=== PATIENT | male | born 1970 | race Two or more races ===

== ENCOUNTER → 2025-03-26 | Outpatient (CLI) | payer MEDICAID | END | disposition home or self-care (01) | LOC: Rad HDHVI 08:06 | PROVIDERS: ATTEND Internal Medicine Cardiovascular Disease | DX: I07.1 Rheumatic tricuspid insufficiency (principal); R06.02 Shortness of breath | CPT/HCPCS: 93306 ==

== ENCOUNTER 2025-04-06 08:01 | Outpatient (CLI) | payer MEDICAID ==
[~2025-04-06] VITALS: Ht 170.2 cm; Wt 111.1 kg
[2025-04-06] MEDS ORDERED: ADENOSINE 93 MG in GIVE UN-DILUTED 0 ML IV ONE (08:30)
[2025-04-06] MEDS ORDERED: ADENOSINE 90 MG/30 ML INJ IV ONE (08:34)
== END 2025-04-06 17:00 | disposition home or self-care (01) ==
LOC: Rad HDHVI 08:01
PROVIDERS: ATTEND Internal Medicine Cardiovascular Disease
DX: R06.00 Dyspnea, unspecified (principal); I10 Essential (primary) hypertension; R06.02 Shortness of breath; R09.02 Hypoxemia; J45.909 Unspecified asthma, uncomplicated; E78.00 Pure hypercholesterolemia, unspecified
CPT/HCPCS: 78452; 93017; A9500; J0153

== ENCOUNTER 2025-04-27 10:22 | Inpatient (IN) | payer MEDICAID ==
[2025-04-27] VITALS (26 sets, daily range): BP systolic 106–146; BP diastolic 58–73; PULSE 89–109; RESP 14–30; TEMP 97.6–99.6; O2SAT 94–100
[~2025-04-27] VITALS: Ht 170.2 cm; Wt 113.1 kg
--- NOTE | 2025-04-27 10:40 | ED.PDOC ---
SOB-HPI HPI Comments 55y M who presents to the ED via EMS for chief complaint of shortness of breath. Pt states his shortness of breath started yesterday with noted exacerbation of his shortness of breath with exertion. Pt states today AM, pt was walking in grocery store and noted he started be short of breath. Pt states he went to his car and took his asthma inhaler and states he still was short of breath and called EMS. EMS arrived on scene and noted had increased work of breathing with noted 02 sat of 97% on room air and pt was given 1 breathing treatment with noted albuterol and Atrovent treatment. Pt now in the ED, states he has been having associated vomiting, chills and diarrhea with noted bilateral lower extremity swelling. Pt [facility] and states he is having testing done for heart disease. Pt otherwise denies any other symptoms. The patient is also now stating that he has had a lower GI bleed. Chief Complaint: shortness of breath Time Seen by MD: 10:39 Reviewed notes: Nurses Notes, Aircraft Cleaning Supervisor Notes, Medications, Allergies Information Source: Patient, Emergency Med Personnel Mode of Arrival: EMS Brought in by: EMS Severity: Moderate Timing: Hours Duration: Since onset Context: With Light Exertion, With Heavy Exertion PE Risk Factors: None History of: Asthma Prehospital treatment: Treatment (ermias segal, ) Modifying Factors: Exertion, Inhaler Associated Signs and Symptoms: Other (chills, vomting) Past Medical History PAST MEDICAL HISTORY: Asthma Past Medical History (Other): psoriasis Surgical History: Denies all surgeries Family History Family History: Family hx of DM Social History Smoker: Non-Smoker Alcohol: Occasionally Drugs: Denies Drug Use Lives In: Home Constitutional: reports: chills; denies: diaphoresis, fatigue, fever, malaise, sweats, weakness, others EENTM: denies: blurred vision, double vision, ear bleeding, ear discharge, ear drainage, ear pain, ear ringing, eye pain, eye redness, hearing loss, mouth pain, mouth swelling, nasal discharge, nose bleeding, nose congestion, nose pain, photophobia, tearing, throat pain, throat swelling, voice changes, others Respiratory: reports: shortness of breath; denies: cough, hemoptysis, orthopnea, SOB at rest, SOB with excertion, stridor, wheezing, others Cardiovascular: denies: chest pain, dizzy spells, diaphoresis, Dyspnea on exertion, edema, irregular heart beat, left arm pain, lightheadedness, palpitations, PND, syncope, others Gastrointestinal: reports: diarrhea, vomiting; denies: abdomen distended, abdominal pain, blood streaked bowels, constipated, dysphagia, difficulty swallowing, hematemesis, melena, nausea, poor appetite, poor fluid intake, rectal bleeding, rectal pain, others Genitourinary: denies: burning, dysuria, flank pain, frequency, hematuria, incontinence, penile discharge, penile sore, pain, testicle pain, testicle swelling, urgency, others Neurological: denies: dizziness, fainting, headache, left sided numbness, left sided weakness, numbness, paresthesia, pre-existing deficit, right sided numbness, right sided weakness, seizure, speech problems, tingling, tremors, weakness, others Musculoskeletal: denies: back pain, gout, joint pain, joint swelling, muscle pain, muscle stiffness, neck pain, others Integumetry: denies: bruises, change in color, change in hair/nails, dryness, laceration, lesions, lumps, rash, wounds, others Allergic/Immunocompromised: denies: Difficulty Healing, Frequent Infections, Hi ves, Itching, others Hematologic/Lymphatic: denies: anemia, blood clots, easy bleeding, easy bruising, swollen glands, others Endocrine: denies: excessive hunger, excessive sweating, excessive thirst, excessive urination, flushing, intolerance to cold, intolerance to heat, unexplained weight gain, unexplained weight loss, others Psychiatric: denies: anxiety, bipolar disorder, depression, hopeless, panic disorder, schizophrenia, sleepless, suicidal, others All Other Systems: Reviewed and Negative Physical Exam General Appearance: Obese, Severe Distress HEENT: Pale Conjuntivae (L), Pale Conjuntivae (R), Pharynx Normal, TMs Normal Neck: Full Range of Motion, Non-Tender, Normal, Normal Inspection Respiratory: Chest Non-Tender, Lungs Clear, No Accessory Muscle Use, No Respiratory Distress, Normal Breath Sounds Cardiovascular: No Edema, No JVD, No Murmur, No Gallop, Normal Peripheral Pulses, Regular Rate/Rhythm Breast Exam: Deferred Gastrointestinal: No Organomegaly, Non Tender, No Pulsatile Mass, Normal Bowel Sounds, Soft Genitalia: Deferred Pelvic: Deferred Rectal: Deferred Extremities: No calf tenderness, Normal capillary refill, Normal inspection, Normal range of motion, Non-tender, No pedal edema Musculoskeletal : Apperance: Normal Neurologic: Alert, quality assurance group leader II-XII nml as Tested, Motor Weakness, Normal Affect, Normal Mood, No Sensory Deficits Cerebellar Function: Normal Reflexes: Normal Skin: Dry, Pallor, Warm Lymphatic: No Adenopathy EKG EKG : Pulse Rate (adult): 113 [place]: Normal Cardiac Rhythm: ST Block: None Hypertrophy: None ST: Normal Was a procedure done? Was a procedure done?: No Differential Dx Differential Diagnosis: Asthma, Bronchitis, CHF, COPD, Hypertension, Myocardial infarction, Pneumonia, Pulmonary Embolism, Respiratory Distress, URI Comments COVID, Influenza A and B X-Ray, Labs, Meds, VS Vital Signs Date Time Temp Pulse Resp B/P (MAP) Pulse Ox O2 Delivery O2 Flow Rate FiO2 04/27/25 16:00 107 04/27/25 15:00 98.7 104 25 144/71 (95) 100 98.7 04/27/25 14:42 98.5 108 30 129/58 98.5 04/27/25 14:22 97.6 104 28 138/62 97.6 04/27/25 14:00 103 28 134/76 (95) 100 04/27/25 12:00 102 04/27/25 12:00 102 23 137/47 (77) 100 04/27/25 10:51 100 Nasal Cannula* 2 28 04/27/25 10:51 25 100 Nasal Cannula* 2 28 04/27/25 10:51 109 25 100 Nasal Cannula* 2 28 04/27/25 10:51 98.2 109 25 124/55 (78) 100 98.2 04/27/25 10:40 113 04/27/25 10:33 98.4 113 20 118/83 97 98.4 04/27/25 10:30 113 Lab Test 04/27/25 15:57 04/27/25 13:35 04/27/25 13:34 04/27/25 11:42 Range/Units Stool Occult Blood Sample #3 Pending Lactic Acid Level 14.3 *H 0.4-2.0 mmol/L Troponin I High Sensitivity 37 </=54 ng/L Blood Gas Specimen Type Venous Blood Gas Sample Site Vbg - n/a Blood Gas Patient Temperature 37.0 Arterial Blood Date Drawn [id number] Santhosh Test N/a Venous Blood pH 7.275 L 7.320-7.430 Venous Blood pCO2 at Patient Temp 17.7 L 38.0-54.0 mmHg Venous Blood pO2 at Patient Temp < 36.5 23.0-48.0 mmHg Venous Blood HCO3 8.0 L 22.0-29.0 mmol/L Venous Blood Base Excess -16.1 L -2.0-3.0 mmol/L Blood Gas Liter Flow 1.00 Blood Gas Modality Nasal cannula FiO2 % 24.0 Test 04/27/25 11:35 04/27/25 10:46 04/27/25 10:45 04/27/25 10:30 Range/Units Troponin I High Sensitivity 32 29 </=54 ng/L White Blood Count 31.8 *H 4.4-10.8 10^3/uL Red Blood Count 1.79 L 4.5-5.90 10^6/uL Hemoglobin 4.1 *L 13.5-17.5 g/dL Hematocrit 16.3 L 41.0-53.0 % Mean Corpuscular Volume 91.2 80.0-100.0 fL Mean Corpuscular Hemoglobin 23.1 L 28.0-32.0 pg Mean Corpuscular Hemoglobin Concent 25.4 L 32.0-36.0 g/dL Red Cell Distribution Width 23.6 H 11.8-14.3 % Platelet Count 288 140-450 10^3/uL Mean Platelet Volume 9.1 6.9-10.8 fL Neutrophils (%) (Auto) 37.0-80.0 % Lymphocytes (%) (Auto) 10.0-50.0 % Monocytes (%) (Auto) 0.0-12.0 % Basophils (%) (Auto) 0.0-2.0 % Neutrophils # (Auto) 1.6-8.6 10 ^3/uL Lymphocytes # (Auto) 0.4-5.4 10 ^3/uL Monocytes # (Auto) 0-1.3 10 ^3/uL Differential Total Cells Counted 100.0 100 Neutrophils % (Manual) 80 37.0-80.0 Band Neutrophils % (Manual) 11 Lymphocytes % (Manual) 2 L 10.0-50.0 Monocytes % (Manual) 7 0-12 Eosinophils % (Manual) 0 0-7 Basophils % (Manual) 0 0.0-2.0 Metamyelocytes % (manual) 0 Myelocytes % (Manual) 0 Promyelocytes % (Manual) 0 Blast Cells % (Manual) 0 Nucleated Red Blood Cells 1.0 % Reactive Lymphocytes 0 Platelet Estimate Adequate Hypochromasia (manual) Moderate Anisocytosis (manual) Slight Sodium Level 141 136-145 mmol/L Potassium Level 5.2 H 3.5-5.1 mmol/L Chloride Level 108 H 98-107 mmol/L Carbon Dioxide Level < 10 *L 20-31 mmol/L Anion Gap 23.96736 H 5-15 Blood Urea Nitrogen 39 H 9-23 mg/dL Creatinine 1.37 H 0.700-1.30 mg/dL Glomerular Filtration Rate Calc 61 >90 mL/min BUN/Creatinine Ratio 28.5 H 10.0-20.0 Serum Glucose 139 H 74-106 mg/dL Lactic Acid Level 15.1 *H 0.4-2.0 mmol/L Calcium Level 8.5 L 8.7-10.4 mg/dL B-Type Natriuretic Peptide 51.08 0-100 pg/mL Influenza Type A Antigen Negative Negative Influenza Type B Antigen Negative Negative SARS-CoV-2 Antigen (Rapid) Negative NEGATIVE Urine Color Light-yellow Yellow Urine Clarity Clear Clear Urine pH 5.0 5.0-9.0 Urine Specific [place] 1.015 1.001-1.035 Urine Protein Negative Negative Urine Ketones 1+ H Negative Urine Blood Negative Negative /uL Urine Nitrite Negative Negative Urine Bilirubin Negative Negative Urine Urobilinogen Normal Negative mg/dL Urine Leukocyte Esterase Negative Negative /uL Urine RBC 1 0 - 3 /hpf Urine Microscopic WBC 0-3 /HPF Urine Squamous Epithelial Cells Few <5 /hpf Urine Bacteria None seen None Seen /hpf Urine Glucose Normal Normal mg/dL Current Medications Medications (Trade) Dose Ordered Sig/Lizandro Route Start Time Stop Time Status Last Admin Methylprednisolone Sodium Succinate (Solu Medrol) 125 mg ONCE ONCE IV 04/27/25 10:30 04/27/25 10:33 DC 04/27/25 11:03 Sodium Chloride 1,000 ml @ 150 mls/hr Q6H40M ONCE IV 04/27/25 11:45 04/27/25 18:24 04/27/25 11:56 Vancomycin HCl 250 ml @ 250 mls/hr ONCE ONCE IV 04/27/25 11:45 04/27/25 12:44 DC 04/27/25 12:40 Ceftriaxone Sodium 50 ml @ 100 mls/hr ONCE ONCE IV 04/27/25 11:45 04/27/25 12:14 DC 04/27/25 12:04 Sodium Bicarbonate 50 ml/ Sodium Chloride 1,050 ml @ 50 mls/hr ONCE ONCE IV 04/27/25 11:45 04/28/25 08:44 04/27/25 12:53 Sodium Bicarbonate 50 ml ONCE ONCE IV 04/27/25 11:45 04/27/25 11:46 DC 04/27/25 12:04 Sodium Chloride 2,000 ml @ 2,000 mls/hr ONCE ONCE IV 04/27/25 12:00 04/27/25 12:59 DC 04/27/25 11:56 Lorazepam (Ativan Inj) 1 mg ONCE ONCE IV 04/27/25 15:00 04/27/25 15:01 DC 04/27/25 16:00 Pantoprazole Sodium 50 ml @ 10 mls/hr Q5H ONCE IV 04/27/25 16:00 04/27/25 20:59 04/27/25 16:14 PROCEDURE(s): CXRP - CHEST PORTABLE IMPRESSION: 1. No evidence of acute disease. IV Hep-Lock was established The patient was given Solu-Medrol 125 mg IV push. The patient's troponin level is within normal limits The chemistry panel shows hyperkalemia at 5.2 The CO2 level is less than 10. The anion gap is elevated at 23 The patient's BUN is 39 creatinine is 1.37. The patient's lactic acid level is elevated at 15.1 Blood cultures x2 were drawn. The patient is being started on D5 1/2 saline with sodium bicarbonate as a drip. The patient's CBC shows a hemoglobin of only 4.1 and hematocrit of 16.3 We are type and screening the patient at this time. The patient will have a 2nd IV line placed. The patient will be transfused with 2 units of packed red blood cells. The patient's white blood cell count is elevated at 31.3 Sepsis protocol was started. The patient will be given normal saline per sepsis protocol. The patient was also started on vancomycin and Rocephin following blood cultures. The patient is being admitted to the ICU at this time. Medical decision making was done based on the fact that the patient is altered and his condition seems to be worsening at this time. The patient's electrolytes are significantly abnormal The patient is also significantly anemic and will require blood transfusion Critical care management was done because of consulting Nephrology Decision-making was made at bedside Interpretation of lab and imaging studies as well as a plan for this patient also was involved in the critical care The patient had a large bowel movement with bright red blood. The patient's blood pressure has been somewhat normotensive. We did contact GI for consult and Dr. Díaz did come to bedside to evaluate the patient. The patient is being admitted at this time. The patient was started on a Protonix drip after the patient had the large GI bleed Images Reviewed?: Images reviewed and evaluated by me Time of 1ST Reevaluation: 11:10 Reevaluation 1ST: Unchanged Patient Education/Counseling: Diagnosis, Treatment, Prognosis Family Education/Counseling: No Family Present SEPSIS Sepsis Screen Physician Orders Chest Portable (04/27/25 10:30) Heplock Iv (04/27/25 10:30) Pulse Oximetry (04/27/25 10:30) Oxygen (04/27/25 10:30) Optical Manager (04/27/25 10:30) Blood Pressure (04/27/25 10:30) Electrocardigram (04/27/25 10:30) Blood Culture (04/27/25 10:30) Electrocardigram (04/27/25 11:30) Electrocardigram (04/27/25 13:30) Sodium Chloride 0.9% (04/27/25 11:45) Sodium Bicarb 50meq/50ml Vial (04/27/25 11:45) Obtain Consent For: (04/27/25 11:37) Type And Screen (04/27/25 11:37) Administer Blood Products UD (04/27/25 11:37) Venous Blood Gas (04/27/25 11:35) PTPTT (04/27/25 15:45) Comprehensive Metabolic Panel (04/27/25 15:45) Stool Occult Blood (04/27/25 15:52) * Gi Dvh Certified Registered Nurse Practitioner (04/27/25 15:52) Pantoprazole 40mg/50ml Ns Ae (Protonix) (04/27/25 16:00) Vital Signs Date Time Temp Pulse Resp B/P (MAP) Pulse Ox O2 Delivery O2 Flow Rate FiO2 04/27/25 16:00 107 04/27/25 15:00 98.7 104 25 144/71 (95) 100 98.7 04/27/25 14:42 98.5 108 30 129/58 98.5 04/27/25 14:22 97.6 104 28 138/62 97.6 04/27/25 14:00 103 28 134/76 (95) 100 04/27/25 12:00 102 04/27/25 12:00 102 23 137/47 (77) 100 04/27/25 10:51 100 Nasal Cannula* 2 28 04/27/25 10:51 25 100 Nasal Cannula* 2 28 04/27/25 10:51 109 25 100 Nasal Cannula* 2 28 04/27/25 10:51 98.2 109 25 124/55 (78) 100 98.2 04/27/25 10:40 113 04/27/25 10:33 98.4 113 20 118/83 97 98.4 04/27/25 10:30 113 Laboratory Tests Test 04/27/25 10:46 04/27/25 13:35 Lactic Acid Level 15.1 mmol/L (0.4-2.0) *H 14.3 mmol/L (0.4-2.0) *H White Blood Count 31.8 10^3/uL (4.4-10.8) *H Medications Medications Dose Ordered Sig/Lizandro Route Start Time Stop Time Status Last Admin Dose Admin Ceftriaxone Sodium 50 ml @ 100 mls/hr ONCE ONCE IV 04/27/25 11:45 04/27/25 12:14 DC 04/27/25 12:04 Lorazepam 1 mg ONCE ONCE IV 04/27/25 15:00 04/27/25 15:01 DC 04/27/25 16:00 Methylprednisolone Sodium Succinate 125 mg ONCE ONCE IV 04/27/25 10:30 04/27/25 10:33 DC 04/27/25 11:03 Pantoprazole Sodium 50 ml @ 10 mls/hr Q5H ONCE IV 04/27/25 16:00 04/27/25 20:59 04/27/25 16:14 Sodium Bicarbonate 50 ml/ Sodium Chloride 1,050 ml @ 50 mls/hr ONCE ONCE IV 04/27/25 11:45 04/28/25 08:44 04/27/25 12:53 Sodium Bicarbonate 50 ml ONCE ONCE IV 04/27/25 11:45 04/27/25 11:46 DC 04/27/25 12:04 Sodium Chloride 1,000 ml @ 150 mls/hr Q6H40M ONCE IV 04/27/25 11:45 04/27/25 18:24 04/27/25 11:56 Sodium Chloride 2,000 ml @ 2,000 mls/hr ONCE ONCE IV 04/27/25 12:00 04/27/25 12:59 DC 04/27/25 11:56 Vancomycin HCl 250 ml @ 250 mls/hr ONCE ONCE IV 04/27/25 11:45 04/27/25 12:44 DC 04/27/25 12:40 Departure 1 Departure Time of Disposition: 11:42 Impression: Primary Impression: Metabolic acidosis Additional Impressions: Acute respiratory failure Qualified Codes: J96.01 - Acute respiratory failure with hypoxia Severe anemia Lower GI bleed Disposition: ADMITTED INPATIENT Admit to: ICU Condition: Fair Critical Care Note Critical Care Time?: Yes (55 min-critical care time only) Stability Stability form required: Yes Unstable for transfer: ICU, CCU, PCU, PRIYANKA (Intensive VS monitoring), May require CPR (possible rapid decline), ED Physician Assesment (Clinical assesment) Heart Score Heart Score: Heart Score Response (Comments) Value History Slightly Suspicious 0 EKG Normal 0 Age 45-64 1 Risk Factors No known risk factors 0 Troponin Normal limit 0 Total 1 I personally scribed for ROZINA NAVARRETE MD (INDER) on 04/27/25 at 10:40. Electronically submitted by Karri Jaimes ([email or web address]). I personally scribed for ROZINA NAVARRETE MD (INDER) on 04/27/25 at 11:03. Elec tronically submitted by Karri Jaimes ([facility] I personally scribed for ROZINA NAVARRETE MD (INDER) on 04/27/25 at 11:05. Electronically submitted by Karri Jaimes ([facility] ROZINA NAVARRETE MD Apr 27, 2025 10:40
[2025-04-27] MEDS: methylPREDNISolone SOD SUCC 125 MG/2 ML VL IV ONE (11:03)
--- NOTE | 2025-04-27 11:04 | DVH ---
INDICATION: sob TECHNIQUE: Frontal view of the chest. COMPARISON: IH-X-RAY, CHEST, PA AND LATERAL on DOS: 01/22/25 FINDINGS: . The heart and mediastinal contours are grossly unremarkable. There is no evidence of pleural disea se. The lungs are clear. The bony structures of the chest are intact without fracture. IMPRESSION: 1. No evidence of acute disease.
[2025-04-27 11:18] LABS: Sodium 141 mmol/L (136-145)
[2025-04-27 11:19] LABS: Anion Gap 23.00001 (5-15)
[2025-04-27 11:24] LABS: BUN/Creatinine Ratio 28.5 (10.0-20.0)
[2025-04-27 11:26] LABS: Hematocrit 16.3 % (41.0-53.0); Mean Corpuscular Hemoglobin 23.1 pg (28.0-32.0); Mean Corpuscular Volume 91.2 fL (80.0-100.0)
[2025-04-27 11:28] LABS: Blood Urea Nitrogen 39 mg/dL (9-23); Calcium 8.5 mg/dL (8.7-10.4); Carbon Dioxide < 10 mmol/L (20-31); Chloride 108 mmol/L (98-107); Glucose 139 mg/dL (74-106); Lactic Acid w/Reflex 15.1 mmol/L (0.4-2.0); Potassium 5.2 mmol/L (3.5-5.1)
[2025-04-27 11:36] LABS: Hemoglobin 4.1 g/dL (13.5-17.5)
[2025-04-27 11:56] LABS: Anisocytosis Slight; Nucleated Red Blood Cells % 1.0 %; Total Cells Counted 100.0 (100)
[2025-04-27] MEDS: SODIUM CHLORIDE 0.9% 1,000 ML IV ONE (11:56)
[2025-04-27] MEDS: SODIUM CHLORIDE 0.9% 2,000 ML IV ONE (11:56)
[2025-04-27] MEDS: SODIUM BICARB 8.4% 50Meq/50ml SYR Vial IV ONE (12:04)
[2025-04-27] MEDS: VANCOMYCIN 1GM/250ML KIT 250 ML IV ONE (12:40)
[2025-04-27] MEDS: SODIUM BICARB 50mEq/50ml Vial 50 ML in SOD CHL 0.45% 1,000 ML IV ONE (12:53)
[2025-04-27 13:30] LABS: Urine Protein, UAD Negative (Negative)
[2025-04-27 13:47] LABS: COVID19 ANTIGEN SOFIA FIA NEGATIVE (NEGATIVE)
[2025-04-27] MEDS: LORazepam 2MG/ML-1ML VIAL IV ONE (16:00)
[2025-04-27] MEDS: PANTOPRAZOLE 40mg/50ML NS AE 50 ML IV ONE (16:14)
--- NOTE | 2025-04-27 16:39 | DVHCONRES ---
Date Seen: Apr 27, 2025 Resident Creating Document: MICHELLE KRISHNAMURTHY RESIDENT Referring Physician Dr. Zaldivar Reason for Consultation Rectal bleeding History of Present Illness Patient is a 55-year-old male with past medical history of dyslipidemia, psoriasis, asthma, who came in due to shortness of breath. According to the patient, he has been experiencing shortness of breath for the last 2 days, he took breathing treatments including albuterol, however after some relief initially eventually stopped helping. Patient notes shortness of breath is also associated with dizziness. Denies having similar symptoms in the past. Of note, patient states he takes ibuprofen plus Advil daily for many months due to an ongoing back pain he is dealing with. Patient also notes he had quit drinkin g alcohol in September 2023, however, relapsed 5 months ago and started drinking again. Patient notes he had 3 bowel movements today, 6 bowel movements yesterday, all of them red bloody mixed with black tarry stool. Past Medical History Dyslipidemia, psoriasis, asthma Past Surgical History Denies Social History Smoking: Denies Alcohol: Drank 4 shots of vodka yesterday, 2 shots of vodka this morning. Drinks alcohol daily for the last 30-35 years Drugs: Denies Allergies: Coded Allergies: No Known Drug Allergy (Verified Allergy, Unknown, 04/06/25) Current Medications Current Medications Medications (Trade) Dose Ordered Sig/Lizandro Route PRN Reason Start Time Stop Time Status Last Admin Octreotide Acetate 500 mcg/ Sodium Chloride 100 ml @ 10 mls/hr Q10H IV 04/27/25 16:30 UNV Review of Systems Patient seen and examined at bedside. Patient is alert and oriented to time, place person and responding to all questions. General: Chills Eyes: No Pain, No Vision change, No Conjunctivae inflammation, No Eyelid inflammation, No Other, No Redness ENT: No Ear pain, No Ear discharge, No Nose pain, No Nose discharge, No Nose congestion, No Mouth pain, No Mouth swelling, No Throat pain, No Throat swelling, No Other Cardiovascular: No Chest Pain, No Palpitations, No Orthopnea, No Paroxysmal No Dyspnea, No Edema, No Lt Headedness, No Other Respiratory: Productive cough, No Dry, Shortness of breath, No SOB with exertion, No Wheezing, No Hemoptysis, No Pleuritic Pain, No Sputum, No Other Gastrointestinal: Nausea, Vomiting, No Abdominal Pain, Diarrhea, No Constipation, Melena, Hematochezia, No Other Genitourinary: No Dysuria, No Frequency, No Incontinence, No Hematuria, No Retention, No Other Musculoskeletal: No other, No neck pain, No shoulder pain, No arm pain, No back pain, No hand pain, No leg pain, No foot pain Skin: No Rash, No Lesions, No Jaundice, No Bruising, No Other Vital Signs Vital Signs Date Time Temp Pulse Resp B/P (MAP) Pulse Ox O2 Delivery O2 Flow Rate FiO2 04/27/25 16:37 99.1 107 27 127/65 99.1 04/27/25 15:00 100 04/27/25 10:51 Nasal Cannula* 2 28 Physical Exam General Appearance: Cooperative. Well developed. In moderate distress Pulmonary/Respiratory: Equal bilateral air entry Cardiovascular/Chest: Regular rate and rhythm. Abdominal Exam: Normal bowel sounds. Distended abdomen, dullness to percussion. Nontender Neuro/Mental Status: A&O x4. Coherent. Thoughts/Psych: Normal thought pattern. Appropriate mood and affect. Good judgement and insight Skin Exam: Normal inspection. Normal color. Warm. Dry Labs/Diagnostic Data Labs Test 04/27/25 15:57 04/27/25 13:35 04/27/25 13:34 04/27/25 11:42 Range/Units Lactic Acid Level 14.3 *H 0.4-2.0 mmol/L Troponin I High Sensitivity 37 </=54 ng/L Blood Gas Specimen Type Venous Blood Gas Sample Site Vbg - n/a Blood Gas Patient Temperature 37.0 Arterial Blood Date Drawn [id number] Santhosh Test N/a Venous Blood pH 7.275 L 7.320-7.430 Venous Blood pCO2 at Patient Temp 17.7 L 38.0-54.0 mmHg Venous Blood pO2 at Patient Temp < 36.5 23.0-48.0 mmHg Venous Blood HCO3 8.0 L 22.0-29.0 mmol/L Venous Blood Base Excess -16.1 L -2.0-3.0 mmol/L Blood Gas Liter Flow 1.00 Blood Gas Modality Nasal cannula FiO2 % 24.0 Test 04/27/25 10:46 04/27/25 10:45 04/27/25 10:30 Range/Units White Blood Count 31.8 *H 4.4-10.8 10^3/uL Red Blood Count 1.79 L 4.5-5.90 10^6/uL Hemoglobin 4.1 *L 13.5-17.5 g/dL Hematocrit 16.3 L 41.0-53.0 % Mean Corpuscular Volume 91.2 80.0-100.0 fL Mean Corpuscular Hemoglobin 23.1 L 28.0-32.0 pg Mean Corpuscular Hemoglobin Concent 25.4 L 32.0-36.0 g/dL Red Cell Distribution Width 23.6 H 11.8-14.3 % Platelet Count 288 140-450 10^3/uL Mean Platelet Volume 9.1 6.9-10.8 fL Neutrophils (%) (Auto) 37.0-80.0 % Lymphocytes (%) (Auto) 10.0-50.0 % Monocytes (%) (Auto) 0.0-12.0 % Basophils (%) (Auto) 0.0-2.0 % Neutrophils # (Auto) 1.6-8.6 10 ^3/uL Lymphocytes # (Auto) 0.4-5.4 10 ^3/uL Monocytes # (Auto) 0-1.3 10 ^3/uL Differential Total Cells Counted 100.0 100 Neutrophils % (Manual) 80 37.0-80.0 Band Neutrophils % (Manual) 11 Lymphocytes % (Manual) 2 L 10.0-50.0 Monocytes % (Manual) 7 0-12 Eosinophils % (Manual) 0 0-7 Basophils % (Manual) 0 0.0-2.0 Metamyelocytes % (manual) 0 Myelocytes % (Manual) 0 Promyelocytes % (Manual) 0 Blast Cells % (Manual) 0 Nucleated Red Blood Cells 1.0 % Reactive Lymphocytes 0 Platelet Estimate Adequate Hypochromasia (manual) Moderate Anisocytosis (manual) Slight Sodium Level 141 136-145 mmol/L Potassium Level 5.2 H 3.5-5.1 mmol/L Chloride Level 108 H 98-107 mmol/L Carbon Dioxide Level < 10 *L 20-31 mmol/L Anion Gap 23.77491 H 5-15 Blood Urea Nitrogen 39 H 9-23 mg/dL Creatinine 1.37 H 0.700-1.30 mg/dL Glomerular Filtration Rate Calc 61 >90 mL/min BUN/Creatinine Ratio 28.5 H 10.0-20.0 Serum Glucose 139 H 74-106 mg/dL Calcium Level 8.5 L 8.7-10.4 mg/dL B-Type Natriuretic Peptide 51.08 0-100 pg/mL Influenza Type A Antigen Negative Negative Influenza Type B Antigen Negative Negative SARS-CoV-2 Antigen (Rapid) Negative NEGATIVE Urine Color Light-yellow Yellow Urine Clarity Clear Clear Urine pH 5.0 5.0-9.0 Urine Specific [place] 1.015 1.001-1.035 Urine Protein Negative Negative Urine Ketones 1+ H Negative Urine Blood Negative Negative /uL Urine Nitrite Negative Negative Urine Bilirubin Negative Negative Urine Urobilinogen Normal Negative mg/dL Urine Leukocyte Esterase Negative Negative /uL Urine RBC 1 0 - 3 /hpf Urine Microscopic WBC 0-3 /HPF Urine Squamous Epithelial Cells Few <5 /hpf Urine Bacteria None seen None Seen /hpf Urine Glucose Normal Normal mg/dL Assessment GI bleed Anemia likely due to acute blood loss MAYDA, likely hemodynamically mediated/VMN Hyperkalemia Sepsis Anion gap metabolic acidosis likely alcoholic and/or starvation ketoacidosis Plan: NPO IV Protonix drip IV octreotide drip Ordered CT abdomen pelvis Ordered liver ultrasound Ordered CMP Transfuse an additional 2 PRBCs EGD tomorrow if patient hemodynamically stable Thank you so much for the opportunity to consult on your patient. GI team will follow the patient. In case of any questions or concerns please feel free to reach out. Plan discussed with Dr. Díaz Plan discussed with: Patient, Other (RN) MICHELLE KRISHNAMURTHY RESIDENT Apr 27, 2025 16:39
[2025-04-27] MEDS ORDERED: ONDANSETRON HCL 4 MG/2 ML VIAL IV PRN (16:45)
[2025-04-27] MEDS ORDERED: MORPHINE SULFATE INJ 2 MG/ml SYRG IV PRN (16:45)
[2025-04-27] MEDS ORDERED: NITROGLYCERIN 0.4 MG SL TAB SL PRN (16:45)
[2025-04-27] MEDS ORDERED: LORazepam 2MG/ML-1ML VIAL IV PRN (17:00)
[2025-04-27] MEDS ORDERED: ATOR10TA52 PO (17:10)
[2025-04-27] MEDS ORDERED: HYDR-3682 PO (17:10)
[2025-04-27] MEDS ORDERED: ALBUTEROL SULF 2.5 MG/0.5ML(0.5%) NEB SOLN NEB PRN (17:15)
[2025-04-27] MEDS ORDERED: IPRATROPIUM BROM 0.5 MG/2.5ML INH SOL NEB PRN (17:15)
--- NOTE | 2025-04-27 17:26 | DVHHP2 ---
History of Present Illness Reason for Visit: Shortness of breath History of Present Illness Johan Grimm is a 55-year-old male with past medical history of psoriasis, hyperlipidemia, and asthma, who came to the hospital for shortness of breath. Patient states he has been experiencing shortness of breath for a couple weeks with associated weakness, dizziness, and loss of energy for a couple weeks. He states his shortness of breath significantly worsened last night and this morning prompting him to come to the hospital. Patient states he has been having blood in his stool for about 2 weeks. It seemed to get better about a week ago, but started back again. Patient is a daily drinker of about 4 ounces of v odka/day. Cardiovascular: hyperipidemia Pulmonary: Asthma Rheumatologic: Other (psoriasis on immunosuppressant medications) Smoke: No ALCOHOL: heavy (daily) Drugs: None Lives: with Family Review of Systems Constitutional: No: Fever, Chills, Sweats, Weakness, Malaise, Other Eyes: No: Pain, Vision change, Conjunctivae inflammation, Eyelid inflammation, Other, Redness ENT: No: Ear pain, Ear discharge, Nose pain, Nose discharge, Nose congestion, Mouth pain, Mouth swelling, Throat pain, Throat swelling, Other Respiratory: Shortness of breath, SOB with excertion, Wheezing; No: Cough, Dry, Hemoptysis, Pleuritic Pain, Sputum, Wheezing, Other Cardiovascular: No: Chest Pain, Palpitations, Orthopnea, Paroxysmal Noc. Dyspnea, Edema, Lt Headedness, Other Gastrointestinal: Melena; No: Nausea, Vomiting, Abdominal Pain, Diarrhea, Constipation, Hematochezia, Other Genitourinary: No Dysuria, No Frequency, No Incontinence, No Hematuria, No Retention, No Other Musculoskeletal: No: other, neck pain, shoulder pain, arm pain, back pain, hand pain, leg pain, foot pain Skin: No: Rash, Lesions, Jaundice, Bruising, Other Neurological: Weakness, Other (dizzy); No: Numbness, Incoordination, Change in speech, Confusion, Seizures Allergies: Coded Allergies: No Known Drug Allergy (Verified Allergy, Unknown, 04/06/25) Medications Current Medications Medications Dose Ordered Sig/Lizandro Route Start Time Stop Time Status Last Admin Dose Admin Octreotide Acetate 500 mcg/ Sodium Chloride 100 ml @ 10 mls/hr Q10H IV 04/27/25 16:30 Ondansetron HCl 4 mg Q4HP PRN IV 04/27/25 16:45 UNV Acetaminophen 650 mg Q6HP PRN PO 04/27/25 16:45 UNV Nitroglycerin 0.4 mg Q5MINP PRN SL 04/27/25 16:45 UNV Morphine Sulfate 2 mg Q30M PRN IV 04/27/25 16:45 UNV Thiamine HCl 100 mg DAILY IV 04/28/25 10:00 UNV Folic Acid 1 mg/ Dextrose 50.2 ml @ 200 mls/hr DAILY INJ 04/28/25 10:00 UNV Lorazepam 1 mg Q2HPRN PRN IV 04/27/25 17:00 UNV Exam Vital Signs Vital Signs Date Time Temp Pulse Resp B/P (MAP) Pulse Ox O2 Delivery O2 Flow Rate FiO2 04/27/25 17:00 98.5 106 26 137/68 98.5 04/27/25 15:00 100 04/27/25 10:51 Nasal Cannula* 2 28 General Appearance: Alert, Oriented X3, Cooperative, moderate distress HEENT: Atraumatic, PERRLA Respiratory: Clear to auscultation, Normal air movement Cardiovascular: Normal S1, Normal S2, Other (ST) Abdominal: Other (Abdomen is firm and distended) Extremities: No clubbing, No cyanosis, Normal pulses, Other (bilateral lower extremity edema) Skin: No rashes, No breakdown, No significant lesion Neuro: Other (weakness, slow to respond) Labs/Xrays Labs Test 04/27/25 15:57 04/27/25 13:35 04/27/25 13:34 04/27/25 11:42 Range/Units Lactic Acid Level 14.3 *H 0.4-2.0 mmol/L Troponin I High Sensitivity 37 </=54 ng/L Blood Gas Specimen Type Venous Blood Gas Sample Site Vbg - n/a Blood Gas Patient Temperature 37.0 Arterial Blood Date Drawn [id number] Santhosh Test N/a Venous Blood pH 7.275 L 7.320-7.430 Venous Blood pCO2 at Patient Temp 17.7 L 38.0-54.0 mmHg Venous Blood pO2 at Patient Temp < 36.5 23.0-48.0 mmHg Venous Blood HCO3 8.0 L 22.0-29.0 mmol/L Venous Blood Base Excess -16.1 L -2.0-3.0 mmol/L Blood Gas Liter Flow 1.00 Blood Gas Modality Nasal cannula FiO2 % 24.0 Test 04/27/25 10:46 04/27/25 10:45 04/27/25 10:30 Range/Units White Blood Count 31.8 *H 4.4-10.8 10^3/uL Red Blood Count 1.79 L 4.5-5.90 10^6/uL Hemoglobin 4.1 *L 13.5-17.5 g/dL Hematocrit 16.3 L 41.0-53.0 % Mean Corpuscular Volume 91.2 80.0-100.0 fL Mean Corpuscular Hemoglobin 23.1 L 28.0-32.0 pg Mean Corpuscular Hemoglobin Concent 25.4 L 32.0-36.0 g/dL Red Cell Distribution Width 23.6 H 11.8-14.3 % Platelet Count 288 140-450 10^3/uL Mean Platelet Volume 9.1 6.9-10.8 fL Neutrophils (%) (Auto) 37.0-80.0 % Lymphocytes (%) (Auto) 10.0-50.0 % Monocytes (%) (Auto) 0.0-12.0 % Basophils (%) (Auto) 0.0-2.0 % Neutrophils # (Auto) 1.6-8.6 10 ^3/uL Lymphocytes # (Auto) 0.4-5.4 10 ^3/uL Monocytes # (Auto) 0-1.3 10 ^3/uL Differential Total Cells Counted 100.0 100 Neutrophils % (Manual) 80 37.0-80.0 Band Neutrophils % (Manual) 11 Lymphocytes % (Manual) 2 L 10.0-50.0 Monocytes % (Manual) 7 0-12 Eosinophils % (Manual) 0 0-7 Basophils % (Manual) 0 0.0-2.0 Metamyelocytes % (manual) 0 Myelocytes % (Manual) 0 Promyelocytes % (Manual) 0 Blast Cells % (Manual) 0 Nucleated Red Blood Cells 1.0 % Reactive Lymphocytes 0 Platelet Estimate Adequate Hypochromasia (manual) Moderate Anisocytosis (manual) Slight Sodium Level 141 136-145 mmol/L Potassium Level 5.2 H 3.5-5.1 mmol/L Chloride Level 108 H 98-107 mmol/L Carbon Dioxide Level < 10 *L 20-31 mmol/L Anion Gap 23.10657 H 5-15 Blood Urea Nitrogen 39 H 9-23 mg/dL Creatinine 1.37 H 0.700-1.30 mg/dL Glomerular Filtration Rate Calc 61 >90 mL/min BUN/Creatinine Ratio 28.5 H 10.0-20.0 Serum Glucose 139 H 74-106 mg/dL Calcium Level 8.5 L 8.7-10.4 mg/dL B-Type Natriuretic Peptide 51.08 0-100 pg/mL Influenza Type A Antigen Negative Negative Influenza Type B Antigen Negative Negative SARS-CoV-2 Antigen (Rapid) Negative NEGATIVE Urine Color Light-yellow Yellow Urine Clarity Clear Clear Urine pH 5.0 5.0-9.0 Urine Specific Thornton 1.015 1.001-1.035 Urine Protein Negative Negative Urine Ketones 1+ H Negative Urine Blood Negative Negative /uL Urine Nitrite Negative Negative Urine Bilirubin Negative Negative Urine Urobilinogen Normal Negative mg/dL Urine Leukocyte Esterase Negative Negative /uL Urine RBC 1 0 - 3 /hpf Urine Microscopic WBC 0-3 /HPF Urine Squamous Epithelial Cells Few <5 /hpf Urine Bacteria None seen None Seen /hpf Urine Glucose Normal Normal mg/dL TECHNIQUE: Frontal view of the chest. FINDINGS: The heart and mediastinal contours are grossly unremarkable. There is no evidence of pleural disease. The lungs are clear. The bony structures of the chest are intact without fracture. IMPRESSION: 1. No evidence of acute disease. SEPSIS Sepsis Screen Date sepsis recognized/suspect: Apr 27, 2025 Time Sepsis recognized/suspect: 1051 Recent Procedure: No On Antibiotic Therapy: No Respiratory Rate >20: Yes Heart Rate >90: Yes Temp<36 C (96.8 F) or >38.3 C: No SBP <90 or MAP <65 mmHG: No New Acute Mental Status Change: No Is the patient on CPAP, BIPAP,: No IV fluid challenge completed?: Yes Physician Orders Chest Portable (04/27/25 10:30) Heplock Iv (04/27/25 10:30) Pulse Oximetry (04/27/25 10:30) Oxygen (04/27/25 10:30) Engraving Plate Maker (04/27/25 10:30) Blood Pressure (04/27/25 10:30) Electrocardigram (04/27/25 10:30) Blood Culture (04/27/25 10:30) Electrocardigram (04/27/25 11:30) Electrocardigram (04/27/25 13:30) Sodium Chloride 0.9% (04/27/25 11:45) Sodium Bicarb 50meq/50ml Vial (04/27/25 11:45) Obtain Consent For: (04/27/25 11:37) Administer Blood Products UD (04/27/25 11:37) Venous Blood Gas (04/27/25 11:35) PTPTT (04/27/25 15:45) Comprehensive Metabolic Panel (04/27/25 15:45) Stool Occult Blood (04/27/25 15:52) * Gi Dvh Mounter Clarinets (04/27/25 15:52) Pantoprazole 40mg/50ml Ns Ae (Protonix) (04/27/25 16:00) Communication Order (04/27/25 16:24) Sodium Chl 0.9% (So... W/Octreotide Acet (04/27/25 16:30) Ammonia (04/27/25 16:33) Ct Ab Pel Wo Con-No Oral Or Iv (04/27/25 16:46) Comprehensive Metabolic Panel (04/27/25 16:46) Obtain Consent For: (04/27/25 16:47) Npo (Nothing By Mouth) Diet (04/27/25 Dinner) Obtain Consent For Anesthesia (04/27/25 16:47) Admit (04/27/25 16:41) Code Status (04/27/25 16:41) Ondansetron Hcl (Zofran) (04/27/25 16:45) Complete Blood Count (04/28/25 04:00) Comprehensive Metabolic Panel (04/28/25 04:00) Condition: Critical (04/27/25 16:41) Acetaminophen Tablet (Tylenol Tablet) (04/27/25 16:45) Nitroglycerin Sublingual (Ntrostat Subli (04/27/25 16:45) Morphine Sulfate Injection (04/27/25 16:45) Stat Ekg For Chest Pain (04/27/25 16:41) Notify Md Of Changes From Base (04/27/25 16:41) Gun Barrel Finisher For 24 Hours (04/27/25 16:41) Emergency Dysrhythmia Protocol (04/27/25 16:41) Rhythm Strips Once Every Shift (04/27/25 16:41) Oxygen By Nasal Cannula (04/27/25 16:41) Abdomen Limited (04/27/25 16:46) Blood Alcohol (04/27/25 16:56) Drug Screen (04/27/25 16:56) Thiamine Inj (04/28/25 10:00) Thiamine Inj (04/27/25 17:00) Folic Acid (04/28/25 10:00) Lorazepam 2mg/Ml Inj (Ativan Inj) (04/27/25 17:00) Vital Signs Date Time Temp Pulse Resp B/P (MAP) Pulse Ox O2 Delivery O2 Flow Rate FiO2 04/27/25 17:00 98.5 106 26 137/68 98.5 04/27/25 16:37 99.1 107 27 127/65 99.1 04/27/25 16:33 99.0 103 25 133/71 99.0 04/27/25 16:00 105 24 144/67 04/27/25 16:00 107 04/27/25 15:00 104 25 144/71 04/27/25 15:00 98.7 104 25 144/71 (95) 100 98.7 04/27/25 14:42 98.5 108 30 129/58 98.5 04/27/25 14:22 97.6 104 28 138/62 97.6 04/27/25 14:00 103 28 134/76 (95) 100 04/27/25 12:00 102 04/27/25 12:00 102 23 137/47 (77) 100 04/27/25 10:51 100 Nasal Cannula* 2 28 04/27/25 10:51 25 100 Nasal Cannula* 2 28 04/27/25 10:51 109 25 100 Nasal Cannula* 2 28 04/27/25 10:51 98.2 109 25 124/55 (78) 100 98.2 04/27/25 10:40 113 04/27/25 10:33 98.4 113 20 118/83 97 98.4 04/27/25 10:30 113 Laboratory Tests Test 04/27/25 10:46 04/27/25 13:35 Lactic Acid Level 15.1 mmol/L (0.4-2.0) *H 14.3 mmol/L (0.4-2.0) *H White Blood Count 31.8 10^3/uL (4.4-10.8) *H Medications Medications Dose Ordered Sig/Lizandro Route Start Time Stop Time Status Last Admin Dose Admin Ceftriaxone Sodium 50 ml @ 100 mls/hr ONCE ONCE IV 04/27/25 11:45 04/27/25 12:14 DC 04/27/25 12:04 100 MLS/HR Lorazepam 1 mg ONCE ONCE IV 04/27/25 15:00 04/27/25 15:01 DC 04/27/25 16:00 1 MG Methylprednisolone Sodium Succinate 125 mg ONCE ONCE IV 04/27/25 10:30 04/27/25 10:33 DC 04/27/25 11:03 125 MG Pantoprazole Sodium 50 ml @ 10 mls/hr Q5H ONCE IV 04/27/25 16:00 04/27/25 20:59 04/27/25 16:14 10 MLS/HR Sodium Bicarbonate 50 ml/ Sodium Chloride 1,050 ml @ 50 mls/hr ONCE ONCE IV 04/27/25 11:45 04/28/25 08:44 04/27/25 12:53 50 MLS/HR Sodium Bicarbonate 50 ml ONCE ONCE IV 04/27/25 11:45 04/27/25 11:46 DC 04/27/25 12:04 50 ML Sodium Chloride 1,000 ml @ 150 mls/hr Q6H40M ONCE IV 04/27/25 11:45 04/27/25 18:24 04/27/25 11:56 150 MLS/HR Sodium Chloride 2,000 ml @ 2,000 mls/hr ONCE ONCE IV 04/27/25 12:00 04/27/25 12:59 DC 04/27/25 11:56 2,000 MLS/HR Vancomycin HCl 250 ml @ 250 mls/hr ONCE ONCE IV 04/27/25 11:45 04/27/25 12:44 DC 04/27/25 12:40 250 MLS/HR Assessment/Plan Assessment/Plan Assessment: Lower GI bleed, Severe anemia, Lactic acidosis, Possible Sepsis, Leukocytosis, Plan: Admit to [facility], GI consult, NPO, IV hydration, Bicarb drip, IV antibiotics, Transfuse 2 units PRBC, recheck H&H, Manage Monitor H&H closely, Supplemental oxygen as needed, Breathing treatments as needed, Blood cultures, CMP, ammonia, PT/PTT, UDS, ordered and pending, Home medications held due to NPO status, Plan discussed with: Patient My Orders Orders - CARLY SANTOS Procedure Category Date Status Time PTPTT LAB 04/27/25 Logged 15:45 Comprehensive LAB 04/27/25 Logged Metabolic Panel 15:45 Admit ADMIT 04/27/25 Transmitted 16:41 Code Status CODE 04/27/25 Transmitted 16:41 Ondansetron Hcl PHA 04/27/25 Logged (Zofran) 16:45 Complete Blood Count LAB 04/28/25 Verified 04:00 Comprehensive LAB 04/28/25 Verified Metabolic Panel 04:00 Condition: Critical DARRYL 04/27/25 In Process 16:41 Acetaminophen Tablet PHA 04/27/25 Logged (Tylenol Tablet) 16:45 Nitroglycerin PHA 04/27/25 Logged Sublingual (Ntrostat 16:45 Morphine Sulfate PHA 04/27/25 Logged Injection 16:45 Stat Ekg For Chest [facility] 04/27/25 In Process Pain 16:41 Notify Of Changes [facility] 04/27/25 In Process From Base 16:41 Gun Barrel Finisher For [facility] 04/27/25 In Process 24 Hours 16:41 Emergency Dysrhythmia [facility] 04/27/25 In Process Protocol 16:41 Rhythm Strips Once [facility] 04/27/25 In Process Every Shift 16:41 Oxygen By Nasal RT 04/27/25 Transmitted Cannula 16:41 Blood Alcohol LAB 04/27/25 Logged 16:56 Drug Screen LAB 04/27/25 Logged 16:56 Thiamine Inj PHA 04/28/25 Logged 10:00 Thiamine Inj PHA 04/27/25 Logged 17:00 Folic Acid PHA 04/28/25 Logged 10:00 Lorazepam 2mg/Ml Inj PHA 04/27/25 Logged (Ativan Inj) 17:00 Date of Service: Apr 27, 2025 Billing Provider: CARLY SANTOS Common Visit Codes: [id number] INP/OBS CARE (HIGH) CARLY SANTOS Apr 27, 2025 17:26
--- NOTE | 2025-04-27 18:00 | DVHNC2 ---
Procedure - Central Line Procedure Note Date and time: 04/27/25 at 5:30pm Indication:Vascular Access Central Line Location:Right Internal Jugular Vein Procedure Power Plant Technician: Kaye García, Resident Attending Physician: Consent: Consent was obtained from patient prior to the procedure. Indications, risks and benefits were discussed prior to the procedure. Procedure Summary: A time out was performed. My hands were washed immediately prior to the procedure. I wore a surgical cap, mask with protective eyewear, full gown and sterile gloves throughout the procedure. The patient was placed in Trendelenburg position, with head turned 30 degrees away from the insertion site. The Right neck was prepped using chlorhexidine scrub and draped in sterile fashion using a three quarter sheet drape and sterile towels. Skin preparation was allowed to dry prior to skin puncture. Anatomic landmarks were identified. Anesthesia was achieved over the vein using 10 ml of 1% lidocaine. Using real-time ultrasound, with sterile probe cover and sterile gel, the Right Internal Jugular Vein was identified on ultrasound using the linear ultrasound probe in the transverse orientation. The carotid artery was identified and avoided utilizing color-flow. The Internal Jugular Vein was then placed in the center of the ultrasound field and compressed for patency. The introducer needle was inserted into the vein under direct ultrasound visualization, and a movement artifact was identified as the needle was advanced through the skin toward the vessel. A real-time hyperechoic signal revealed visualization of vascular needle entry into the lumen as blood was noted to flashback in the syringe. The needle was then held in place, the syringe was removed, and the guide wire was advanced through the needle. Direct visualization of the guide wire location within the vein was noted on ultras ound, indicating proper placement. The needle was then removed. A small incision was made at the skin surface with a scalpel, and a skin dilator was advanced over the guide wire. After appropriate dilation was obtained, the dilator was removed, and a triple-lumen catheter was then advanced over the guide wire into proper position. The guide wire was removed and discarded. The ports were aspirated, which showed good blood return, and then carefully flushed with normal saline. The catheter was stabilized and sutured to the skin with 2-0 silk at two anchor points. A sterile op-site was placed over the catheter and biopatch. The patient tolerated the procedure without any hemodynamic compromise. Estimated blood loss: 5 ml Post-procedure chest x-ray: Shows proper positioning of the catheter for use. KAYE GARCÍA Apr 27, 2025 18:00
--- NOTE | 2025-04-27 18:11 | DVH ---
CHEST RADIOGRAPH Indication: confirm central line placement Technique: Single frontal view of the chest was obtained COMPARISON: XY CHEST PORTABLE on DOS: 04/27/25, IH-X-RAY, CHEST, PA AND LATERAL on DOS: 01/22/25 FINDINGS: Lines and Tubes: Right central venous catheter in satisfactory position overlying the superior vena c ebenezer. Lungs: Congestion Pleura: No effusion. No pneumothorax. Cardiomediastinal contours: Unremarkable Bones: Unremarkable IMPRESSION: Right central venous catheter in satisfactory position overlying the superior vena cava.
[2025-04-27] MEDS: THIAMINE 100mg/ml INJ (200mg/2ml VIAL) IV ONE (18:19)
[2025-04-27] MEDS: OCTREOTIDE ACETATE 500 MCG in SODIUM CHL 0.9% 99 ML IV SCH (18:20)
--- NOTE | 2025-04-27 18:36 | DVH ---
Technique: Real-time ultrasound imaging of the abdomen was performed with grayscale and color Doppler . Indication: Evaluate right upper quadrant Comparison: None Findings: Liver measures 21 cm. It is increased in echogenicity and coarse echotexture without focal mass. Por vanessa vein is normal in caliber and demonstrates normal hepatopetal flow. Gallbladder demonstrates no evidence for cholelithiasis. There is no pericholecystic fluid. The wall thickness is 8 mm. The common bile duct measures 6 mm. No intrahepatic biliary ductal dilatation. The right kidney measures 11 cm. The left kidney measures 12.3 cm. No hydronephrosis or sonographic e vidence of nephrolithiasis. Right renal midpole cyst measuring 3.3 x 3.4 cm. The visualized portion of the pancreas is unremarkable. Spleen measures 15 cm. The IVC is nonvisualized. Impression: Hepatosplenomegaly. Echogenic liver with coarse echotexture which can be seen with cirrhosis. Thickened gallbladder wall 10 mm which can be seen with portal hypertension, fluid overload, cholecys titis. HIDA scan can be obtained to exclude cholecystitis.
--- NOTE | 2025-04-27 18:44 | DVH ---
Indication: Abdominal distention Technique: CT axial images of the abdomen and pelvis are obtained without contrast. Reformats were ob tained. Radiation Dose Information: CTDI volume is 25 mGy. Dose-length product is 1462 mGy*cm Comparison: Ultrasound abdomen from today FINDINGS: There is limited interpretation of the abdomen and pelvis without administration of intravenous contr ast. Lung bases demonstrate atelectasis. The adrenal glands unremarkable in shape spleen enlarged measuring 16 cm AP. Pancreas unremarkable in shape. Cirrhotic morphology liver. Hepatomegaly. Cholelithiasis. Mild pericholecystic stranding. Gallbladder wall/pericholecystic edema Right renal cysts with peripheral calcifications measuring 4.3 cm. No hydronephrosis. Small hiatal hernia. Gastric distention. Colonic diverticula. Moderate volume stool within the colon. Bowel wall thickening of the ascending colon, transverse colon, descending colon, most pronounced in the cecum and ascending colon appendix not well seen.. Abdominal aortic atherosclerotic disease. Mesenteric edema. Small amount of ascites fluid. Bladder partially distended. No free pelvic fluid. No inguinal lymphadenopathy. No aggressive osseous process. Moderate lumbar degenerative disc disease most pronounced at L4-5 and L5-S1. IMPRESSION: Limited evaluation without contrast. Cirrhotic morphology liver with hepatosplenomegaly. Cholelithiasis. Mild pericholecystic, gallbladder wall edema/ stranding . Recommend HIDA scan to exc lude cholecystitis. Bowel wall thickening of the large bowel as described most pronounced within the cecum and ascending colon which can be secondary to portal hypertension, colitis, inflammatory disease. Right renal cyst with peripheral calcifications measuring 4.3 cm. Recommend MRI abdomen with and wit hout contrast to further characterize to exclude any type of nodular component/complexity. Mesenteric edema. Other findings as described.
[2025-04-27 18:47] LABS: Base Excess -7.9 mmol/L (-2.0-3.0)
[2025-04-27 21:04] LABS: Anion Gap 13 (5-15); BUN/Creatinine Ratio 32.7 (10.0-20.0); Potassium 4.8 mmol/L (3.5-5.1); Sodium 142 mmol/L (136-145); Total Protein 6.1 g/dL (5.7-8.2)
[2025-04-27 21:16] LABS: INR 1.59 (0.9-1.15); Partial Thromboplastin Time 27.3 SEC (24.5-34.5); Prothrombin Time 16.1 sec (9.3-11.8)
[2025-04-27 21:22] LABS: Alanine Aminotransferase 360 U/L (7-40); Albumin 2.7 g/dL (3.2-4.8); Alkaline Phosphatase 129 U/L (46-116); Bilirubin, Total 2.0 mg/dL (0.2-1.0); Blood Urea Nitrogen 36 mg/dL (9-23); Calcium 7.8 mg/dL (8.7-10.4); Carbon Dioxide 17 mmol/L (20-31); Chloride 112 mmol/L (98-107); Glucose 205 mg/dL (74-106)
[2025-04-27 21:50] LABS: Hematocrit 16.0 % (41.0-53.0)
[2025-04-27 22:04] LABS: Hemoglobin 5.0 g/dL (13.5-17.5)
[2025-04-27 22:27] LABS: Lactic Acid w/Reflex 4.7 mmol/L (0.4-2.0)
[2025-04-27 22:54] LABS: Amphetamine Screen, Urine Neg (NEGATIVE); Barbiturate Scree,Urine Neg (NEGATIVE); Benzodiazephine Screen, Urine Neg (NEGATIVE); Cannabinoid Screen, Urine Neg (NEGATIVE); Cocaine Screen, Urine Neg (NEGATIVE); Opiate Scree,Urine Neg (NEGATIVE); Phencyclidine Screen, Urine Neg (NEGATIVE)
[2025-04-28] VITALS (38 sets, daily range): BP systolic 107–131; BP diastolic 60–87; PULSE 73–100; RESP 13–22; TEMP 97.6–98.9; O2SAT 93–100
[2025-04-28] MEDS: PANTOPRAZOLE 40mg/50ML NS AE 50 ML IV ONE (00:47)
[2025-04-28] MEDS: PANTOPRAZOLE 40mg/50ML NS AE 50 ML IV SCH (01:32)
[2025-04-28] MEDS: OCTREOTIDE ACETATE 500 MCG/ML VL ONE (02:40)
[2025-04-28 06:11] LABS: Anion Gap 12 (5-15); BUN/Creatinine Ratio 30.2 (10.0-20.0); Carbon Dioxide 20 mmol/L (20-31); Potassium 4.1 mmol/L (3.5-5.1); Sodium 143 mmol/L (136-145); Total Protein 6.5 g/dL (5.7-8.2)
[2025-04-28 06:12] LABS: Hemoglobin 7.9 g/dL (13.5-17.5)
[2025-04-28 06:16] LABS: Hematocrit 24.2 % (41.0-53.0); Mean Corpuscular Hemoglobin 27.5 pg (28.0-32.0); Mean Corpuscular Volume 84.4 fL (80.0-100.0); Nucleated Red Blood Cells % 0.9 %
[2025-04-28 06:24] LABS: Alanine Aminotransferase 350 U/L (7-40); Albumin 2.9 g/dL (3.2-4.8); Alkaline Phosphatase 134 U/L (46-116); Bilirubin, Total 1.7 mg/dL (0.2-1.0); Blood Urea Nitrogen 29 mg/dL (9-23); Calcium 8.0 mg/dL (8.7-10.4); Chloride 111 mmol/L (98-107); Glucose 223 mg/dL (74-106)
[2025-04-28] MEDS: THIAMINE 100mg/ml INJ (200mg/2ml VIAL) IV SCH (10:27)
[2025-04-28] MEDS: FOLIC ACID 1 MG in D5W 5% 50 ML INJ SCH (11:33)
--- NOTE | 2025-04-28 11:33 | DVHPN2 ---
Subjective The patient is seen and examined at bedside. The patient is very pale and tired. Status post blood transfusions. Reviewed: Care Plan, H&P, Labs, Medications, Previous Orders, Radiology Changes from previous H/P or p: No Changes Eyes: No Pain, No Vision change, No Conjunctivae inflammation, No Eyelid inflammation, No Other, No Redness ENT: No Ear pain, No Ear discharge, No Nose pain, No Nose discharge, No Nose congestion, No Mouth pain, No Mouth swelling, No Throat pain, No Throat swelling, No Other Cardiovascular: No Chest Pain, No Palpitations, No Orthopnea, No Paroxysmal Noc. Dyspnea, No Edema, No Lt Headedness, No Other Respiratory: No Cough, No Dry; Shortness of breath, SOB with excertion, W heezing; No Hemoptysis, No Pleuritic Pain, No Sputum, No Other Gastrointestinal: No Nausea, No Vomiting, No Abdominal Pain, No Diarrhea, No Constipation; Melena; No Hematochezia, No Other Genitourinary: No Dysuria, No Frequency, No Incontinence, No Hematuria, No Retention, No Other Musculoskeletal: No other, No neck pain, No shoulder pain, No arm pain, No back pain, No hand pain, No leg pain, No foot pain Skin: No Rash, No Lesions, No Jaundice, No Bruising, No Other Objective Vitals Vital Signs Date Time Temp Pulse Resp B/P (MAP) Pulse Ox O2 Delivery O2 Flow Rate FiO2 04/28/25 10:30 98.1 79 17 128/68 (88) 96 98.1 04/28/25 08:33 Nasal Cannula* 2 28 Intake/Output Intake and Output 04/28/25 07:00 Intake Total 5380 ml Output Total 3680 ml Balance 1700 ml Intake Oral 0 ml IV Total 3630 ml Blood Product 1750 ml Output Urine Total 3680 ml # Bowel Movements 1 General Appearance: Alert, Oriented X3, Cooperative, mild distress HEENT: Atraumatic, PERRLA, EOMI, Mucous membr. moist/pink Neck: Supple Lungs: Clear to auscultation, Normal air movement Cardiovascular: Regular rate, Normal S1, Normal S2, No murmurs, Gallops, Rubs Abdomen: Normal bowel sounds, Soft, No tenderness Neuro: Cranial nerves 3-12 NL Psych/Mental Status: Mental status NL Medications Current Medications Medications Dose Ordered Sig/Lizandro Route Start Time Stop Time Status Last Admin Dose Admin Octreotide Acetate 500 mcg/ Sodium Chloride 100 ml @ 10 mls/hr Q10H IV 04/27/25 16:30 04/28/25 02:37 10 MLS/HR Ondansetron HCl 4 mg Q4HP PRN IV 04/27/25 16:45 Acetaminophen 650 mg Q6HP PRN PO 04/27/25 16:45 Nitroglycerin 0.4 mg Q5MINP PRN SL 04/27/25 16:45 Morphine Sulfate 2 mg Q30M PRN IV 04/27/25 16:45 Thiamine HCl 100 mg DAILY IV 04/28/25 10:00 04/28/25 10:27 100 MG Folic Acid 1 mg/ Dextrose 50.2 ml @ 200 mls/hr DAILY INJ 04/28/25 10:00 Lorazepam 1 mg Q2HPRN PRN IV 04/27/25 17:00 Ipratropium [place] 0.5 mg Q6HPRN PRN NEB 04/27/25 17:15 Albuterol 2.5 mg Q6HPRN PRN NEB 04/27/25 17:15 Pantoprazole Sodium 50 ml @ 10 mls/hr Q5H IV 04/28/25 01:30 04/28/25 11:03 10 MLS/HR Laboratory Results Laboratory Tests 04/28/25 05:23 Chemistry Test 04/27/25 20:32 04/28/25 05:23 Albumin 2.7 g/dL (3.2-4.8) L 2.9 g/dL (3.2-4.8) L Calcium Level 7.8 mg/dL (8.7-10.4) L 8.0 mg/dL (8.7-10.4) L Total Protein 6.1 g/dL (5.7-8.2) 6.5 g/dL (5.7-8.2) Coagulation Test 04/27/25 20:32 Prothrombin Time 16.1 sec (9.3-11.8) H Prothrombin Time INR 1.59 (0.9-1.15) H Activated Partial Thromboplast Time 27.3 SEC (24.5-34.5) LFT Test 04/27/25 20:32 04/28/25 05:23 Alanine Aminotransferase (ALT) 360 U/L (7-40) H 350 U/L (7-40) H Alkaline Phosphatase 129 U/L (46-116) H 134 U/L (46-116) H Aspartate Amino Transferase (AST) 639 U/L (13-40) H 516 U/L (13-40) H Total Bilirubin 2.0 mg/dL (0.2-1.0) H 1.7 mg/dL (0.2-1.0) H Urinalysis Test 04/27/25 10:30 Urine Color Light-yellow (Yellow) Urine Clarity Clear (Clear) Urine pH 5.0 (5.0-9.0) Urine Specific [place] 1.015 (1.001-1.035) Urine Protein Negative (Negative) Urine Ketones 1+ (Negative) H Urine Blood Negative /uL (Negative) Urine Nitrite Negative (Negative) Urine Bilirubin Negative (Negative) Urine Urobilinogen Normal mg/dL (Negative) Urine Leukocyte Esterase Negative /uL (Negative) Urine RBC 1 /hpf (0 - 3) Urine Microscopic WBC /HPF (0-3) Urine Squamous Epithelial Cells Few /hpf (<5) Urine Bacteria None seen /hpf (None Seen) Urine Glucose Normal mg/dL (Normal) Blood Gas Results Test 04/27/25 11:42 04/27/25 18:34 FiO2 % 24.0 28.0 Arterial Blood pH 7.420 (7.350-7.450) Microbiology Microbiology Date/Time Source Procedure Growth Status 04/27/25 10:59 Blood Blood Culture - Preliminary NO GROWTH AFTER 24 HOURS OF INCUBATION. Resulted Labs and/or images reviewed: Labs reviewed by me Assessment/Plan Assessment/Plan Lower GI bleed, Severe anemia, Lactic acidosis, Possible Sepsis, Leukocytosis, Continuing current management. The patient received two packed red blood cell transfusion. We will continuing to monitor H&H Continuing with IV fluid. Continuing with IV antibiotic. We will follow up with culture. Waiting for GI specialist to see the patient. Continuing to keep patient NPO for now. This medical document was created using an electronic medical record system with [employer] direct computerized dictation system. Although this document has been carefully reviewed, there may still be some phonetic and typographical errors. These areas are purely typographical due to imperfections of the software programs, and do not reflect any compromise in the patient's medical care. Plan discussed with: Patient Date of Service: Apr 28, 2025 Billing Provider: JAYDA SWEENEY MD Common Visit Codes: [id number] INP/OBS CARE(HIGH) JAYDA SWEENEY MD Apr 28, 2025 11:33
[2025-04-28] MEDS ORDERED: fentaNYL CITRATE 100 MCG/2 ML VL ONE (13:28)
[2025-04-28] MEDS ORDERED: LIDOCAINE 2% (LOCAL ANESTH.) PF 5ml SDV ONE (13:29)
[2025-04-28] MEDS ORDERED: GLYCOPYRROLATE 0.2 MG/ML 1ML VIAL ONE (13:29)
[2025-04-28] MEDS ORDERED: MIDAZOLAM HCL 2MG/2ML 2ml VIAL (1mg/ml) ONE (13:29)
[2025-04-28] MEDS ORDERED: ONDANSETRON HCL 4 MG/2 ML VIAL ONE (13:29)
[2025-04-28] MEDS ORDERED: PROPOFOL 10 MG/ML 20 ML IV ONE (13:29)
--- NOTE | 2025-04-28 14:11 | DVHOP2 ---
Operative Report DATE OF OPERATION: 04/28/25 PROCEDURE: Upper Endoscopy with biopsy. PREOPERATIVE INDICATION: The patient is a 55 -year-old male undergoing endoscopy for severe anemia and history of melena POSTOPERATIVE DIAGNOSES: 1. One to 2+ congested distal esophageal varices without stigmata of recent bleeding 2. Underlying 2-3 cm sliding-type hiatal hernia with grade a to B erosive esophagitis and underlying possible Cheatham's 3. Mild portal hypertension gastropathy with some evidence of oozing and a small amounts of coffee-ground in the stomach 4. Otherwise normal examination up to the 2nd and 3rd part of the duodenum with no active bleeding except for increase oozing from biopsy PROCEDURE PERFORMED BY: Radhika Díaz GI NURSE: Kimberley SCOPE: Olympus videoendoscope. ASA CLASS: 3 PREOPERATIVE MEDICATIONS: Mac jonathan, Dr. Sylvester PROCEDURE IN DETAIL: After obtaining an informed consent, the patient was placed on left lateral decubitus position. The patient was then sedated with the above medications. A bite block was placed between his teeth. The endoscope was then passed through the oropharynx, into the esophagus, and through the stomach and pylorus up to the second and third part of the duodenum. The endoscope was then withdrawn. The 2nd and 3rd part of the duodenal and the duodenal bulb were normal. Duodenal biopsies were obtained The pre-pyloric area antrum and body showed mild gastritis. On retroflexion the patient had mild portal hypertension gastropathy in the proximal stomach There was some superficial oozing from the portal hypertension gastropathy and some old coffee-ground in the stomach. After aspiration no underlying active bleeding was noted Gastric biopsies were obtained. Increase oozing was noted from biopsy sites. The endoscope was then withdrawn into distal esophagus Patient had 2-3 cm sliding-type hiatal hernia with grade B erosive esophagitis and underlying suspected Barretts esophagus He also had 2+ distal esophageal varices without stigmata of recent bleeding. The remaining mid to proximal esophagus and oropharynx were unremarkable The patient tolerated the procedure well without difficulty. COMPLICATIONS : None SPECIMENS: Duodenal Biopsies Gastric biopsies DISPOSITION: Transfer back to the floor Stable PLAN: 1. Await for biopsy result 2. Will place pt on Protonix 40 mg bid 3. Carafate 1 g p.o. 4 times a day 4. Start clear liquid diet advance to full liquid 5. Continue to monitor labs 6. Discontinue alcohol 7. Discontinue Protonix drip and change him to Protonix 40 q.12 hours 8. Discontinue octreotide drip 9. Patient has been counseled about discontinuing alcohol 10. DC aspirin NSAIDs smoking alcohol RADHIKA DÍAZ MD Apr 28, 2025 14:11
[2025-04-28] MEDS ORDERED: HYDROmorphone HCL 2 MG/ML VL/or syr IV PRN (14:15)
--- NOTE | 2025-04-28 15:54 | ECG ---
[facility] Test Date: 2025-04-27 Test Time: 10:30:40 Pat Name: AYALA STACY Department: Room: 0284T Gender: M Frame Aligner: JR : 1970 Requested By: ROZINA NAVARRETE Order Number: [id number] Reading MD: Geovani Dexter Measurements Intervals [place] Rate: 113 P: 3 TX: 128 QRS: 8 QRSD: 89 T: -4 QT: 344 QTc: 472 Interpretive Statements Sinus tachycardia Borderline T abnormalities, inferior leads Electronically Signed On 04-28-2025 16:59:52 PDT by Geovani Dexter Please click the below link to view image of tracing.
[2025-04-28] MEDS: SUCRALFATE 1 GM/10 ML ORAL SUSP PO SCH (17:32)
[2025-04-29] VITALS (9 sets, daily range): BP systolic 115–148; BP diastolic 70–96; PULSE 65–82; RESP 15–18; TEMP 98–98.8; O2SAT 90–99
--- NOTE | 2025-04-29 11:53 | DVHPN2 ---
Subjective The patient is seen and examined at bedside. more alert awake today. Reviewed: Care Plan, H&P, Labs, Medications, Previous Orders, Radiology Changes from previous H/P or p: No Changes Eyes: No Pain, No Vision change, No Conjunctivae inflammation, No Eyelid inflammation, No Other, No Redness ENT: No Ear pain, No Ear discharge, No Nose pain, No Nose discharge, No Nose congestion, No Mouth pain, No Mouth swelling, No Throat pain, No Throat swelling, No Other Cardiovascular: No Chest Pain, No Palpitations, No Orthopnea, No Paroxysmal Noc. Dyspnea, No Edema, No Lt Headedness, No Other Respiratory: No Cough, No Dry; Shortness of breath, SOB with excertion, W heezing; No Hemoptysis, No Pleuritic Pain, No Sputum, No Other Gastrointestinal: No Nausea, No Vomiting, No Abdominal Pain, No Diarrhea, No Constipation; Melena; No Hematochezia, No Other Genitourinary: No Dysuria, No Frequency, No Incontinence, No Hematuria, No Retention, No Other Musculoskeletal: No other, No neck pain, No shoulder pain, No arm pain, No back pain, No hand pain, No leg pain, No foot pain Skin: No Rash, No Lesions, No Jaundice, No Bruising, No Other Objective Vitals Vital Signs Date Time Temp Pulse Resp B/P (MAP) Pulse Ox O2 Delivery O2 Flow Rate FiO2 04/29/25 09:00 98.0 77 18 115/70 (85) 99 98.0 04/29/25 06:45 Nasal Cannula 3.0 04/29/25 06:45 32 Intake/Output Intake and Output 04/29/25 07:00 Intake Total 940.2 ml Balance 940.2 ml Intake Oral 500 ml IV Total 440.2 ml # Voids 3 # Bowel Movements 1 General Appearance: Alert, Oriented X3, Cooperative, mild distress HEENT: Atraumatic, PERRLA, EOMI, Mucous membr. moist/pink Neck: Supple Lungs: Clear to auscultation, Normal air movement Cardiovascular: Regular rate, Normal S1, Normal S2, No murmurs, Gallops, Rubs Abdomen: Normal bowel sounds, Soft, No tenderness Neuro: Cranial nerves 3-12 NL Psych/Mental Status: Mental status NL Medications Current Medications Medications Dose Ordered Sig/Lizandro Route Start Time Stop Time Status Last Admin Dose Admin Ondansetron HCl 4 mg Q4HP PRN IV 04/27/25 16:45 Acetaminophen 650 mg Q6HP PRN PO 04/27/25 16:45 Nitroglycerin 0.4 mg Q5MINP PRN SL 04/27/25 16:45 Morphine Sulfate 2 mg Q30M PRN IV 04/27/25 16:45 Thiamine HCl 100 mg DAILY IV 04/28/25 10:00 04/29/25 08:13 100 MG Folic Acid 1 mg/ Dextrose 50.2 ml @ 200 mls/hr DAILY INJ 04/28/25 10:00 04/29/25 09:10 200 MLS/HR Lorazepam 1 mg Q2HPRN PRN IV 04/27/25 17:00 Ipratropium [place] 0.5 mg Q6HPRN PRN NEB 04/27/25 17:15 Albuterol 2.5 mg Q6HPRN PRN NEB 04/27/25 17:15 Pantoprazole Sodium 50 ml @ 10 mls/hr Q5H IV 04/28/25 01:30 04/29/25 08:08 10 MLS/HR Sucralfate 1 gm QID@0600,1130,1700,2200 PO 04/28/25 17:00 04/29/25 05:00 1 GM Laboratory Results Laboratory Tests 04/28/25 05:23 Urinalysis Test 04/27/25 10:30 Urine Color Light-yellow (Yellow) Urine Clarity Clear (Clear) Urine pH 5.0 (5.0-9.0) Urine Specific [place] 1.015 (1.001-1.035) Urine Protein Negative (Negative) Urine Ketones 1+ (Negative) H Urine Blood Negative /uL (Negative) Urine Nitrite Negative (Negative) Urine Bilirubin Negative (Negative) Urine Urobilinogen Normal mg/dL (Negative) Urine Leukocyte Esterase Negative /uL (Negative) Urine RBC 1 /hpf (0 - 3) Urine Microscopic WBC /HPF (0-3) Urine Squamous Epithelial Cells Few /hpf (<5) Urine Bacteria None seen /hpf (None Seen) Urine Glucose Normal mg/dL (Normal) Microbiology Microbiology Date/Time Source Procedure Growth Status 04/27/25 10:59 Blood Blood Culture - Preliminary NO GROWTH AFTER 48 HOURS OF INCUBATION. Resulted Labs and/or images reviewed: Labs reviewed by me Assessment/Plan Assessment/Plan Lower GI bleed, Severe anemia, Lactic acidosis, Possible Sepsis, Leukocytosis, Esophageal varices Geoffrey esophagus. Continuing current management. The patient received two packed red blood cell transfusion. We will continuing to monitor H&H Continuing with IV fluid. Continuing with IV antibiotic. We will follow up with culture. Appreciate GI input DC protonix drip, start protonix PO bid EGD showed: One to 2+ congested distal esophageal varices without stigmata of recent bleeding. Underlying 2-3 cm sliding-type hiatal hernia with grade a to B erosive esophagitis and underlying possible Cheatham's . Mild portal hypertension gastropathy with some evidence of oozing and a small amounts of coffee-ground in the stomach .Otherwise normal examination up to the 2nd and 3rd part of the duodenum with no active bleeding except for increase oozing from biopsy Review EGD results with patient and at bedside. Advise to stop alcohol more than 15 minutes. This medical document was created using an electronic medical record system with [employer] direct computerized dictation system. Although this document has been carefully reviewed, there may still be some phonetic and typographical errors. These areas are purely typographical due to imperfections of the software programs, and do not reflect any compromise in the patient's medical care. Plan discussed with: Patient Date of Service: Apr 29, 2025 Billing Provider: JAYDA SWEENEY MD Common Visit Codes: [id number] INP/OBS CARE(HIGH) JAYDA SWEENEY MD Apr 29, 2025 11:53
[2025-04-29 12:30] LABS: Hematocrit 25.5 % (41.0-53.0); Hemoglobin 8.0 g/dL (13.5-17.5); Mean Corpuscular Hemoglobin 26.6 pg (28.0-32.0); Mean Corpuscular Volume 84.4 fL (80.0-100.0); Nucleated Red Blood Cells % 0.7 %
[2025-04-29 12:45] LABS: INR 1.38 (0.9-1.15); Partial Thromboplastin Time 24.8 SEC (24.5-34.5); Prothrombin Time 14.2 sec (9.3-11.8)
--- NOTE | 2025-04-29 12:46 | DVHPN2 ---
Progress Note Date Seen: Apr 29, 2025 Resident Creating Document: MICHELLE KRISHNAMURTHY RESIDENT Medical Necessity Reason Pt with a Central, PICC or Fol: No Subjective Review of Systems Patient seen and examined at bedside Denies any nausea or vomiting Notes improvement in dyspnea and shortness of breadth Last bowel movement today, nonbloody Tolerating diet. Objective vital signs Vital Sign Date Time Temp Pulse Resp B/P (MAP) Pulse Ox O2 Delivery O2 Flow Rate FiO2 04/29/25 09:00 98.0 77 18 115/70 (85) 99 98.0 04/29/25 06:45 Nasal Cannula 3.0 04/29/25 06:45 32 Total Intake and Output 04/28/25 04/28/25 04/29/25 15:00 23:00 07:00 Intake Total 340.2 ml 50 ml 550 ml Balance 340.2 ml 50 ml 550 ml medications Current Medications Medications Dose Ordered Sig/Lizandro Route Start Time Stop Time Status Last Admin Dose Admin Ondansetron HCl 4 mg Q4HP PRN IV 04/27/25 16:45 Acetaminophen 650 mg Q6HP PRN PO 04/27/25 16:45 Nitroglycerin 0.4 mg Q5MINP PRN SL 04/27/25 16:45 Morphine Sulfate 2 mg Q30M PRN IV 04/27/25 16:45 Thiamine HCl 100 mg DAILY IV 04/28/25 10:00 04/29/25 08:13 100 MG Folic Acid 1 mg/ Dextrose 50.2 ml @ 200 mls/hr DAILY INJ 04/28/25 10:00 04/29/25 09:10 200 MLS/HR Lorazepam 1 mg Q2HPRN PRN IV 04/27/25 17:00 Ipratropium [place] 0.5 mg Q6HPRN PRN NEB 04/27/25 17:15 Albuterol 2.5 mg Q6HPRN PRN NEB 04/27/25 17:15 Pantoprazole Sodium 50 ml @ 10 mls/hr Q5H IV 04/28/25 01:30 04/29/25 12:33 10 MLS/HR Sucralfate 1 gm QID@0600,1130,1700,2200 PO 04/28/25 17:00 04/29/25 12:29 1 GM Examination General Appearance: Cooperative. Well developed. In moderate distress Pulmonary/Respiratory: Equal bilateral air entry Cardiovascular/Chest: Regular rate and rhythm. Abdominal Exam: Normal bowel sounds. Distended abdomen, dullness to percussion. Nontender Neuro/Mental Status: A&O x4. Coherent. Thoughts/Psych: Normal thought pattern. Appropriate mood and affect. Good judgement and insight Skin Exam: Normal inspection. Normal color. Warm. Dry laboratory and microbiology Laboratory Tests 04/29/25 12:18 Test 04/29/25 12:18 Range/Units Serum Glucose Pending Microbiology Date/Time Source Procedure Growth Status 04/27/25 10:59 Blood Blood Culture - Preliminary NO GROWTH AFTER 48 HOURS OF INCUBATION. 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 Mild pericholecystic, gallbladder wall edema/ stranding . Recommend HIDA scan to exclude cholecystitis.Bowel wall thickening of the large bowel as described most pronounced within the cecum and ascending colon which can be secondary to portal hypertension, colitis, inflammatory disease.Right renal cyst with peripheral calcifications measuring 4.3 cm. Recommend MRI abdomen with and without contrast to further characterize to exclude any type of nodular component/complexity Mesenteric edema. Discontinued IV Protonix drip and IV octreotide drip IV Protonix 40 mg b.i.d. Carafate 1 g q.i.d. Counseled patient on the importance of alcohol cessation Discontinue aspirin, NSAIDs, smoking Outpatient follow up with GI recommended Thank you so much for the opportunity to consult on your patient. GI team will follow the patient. In case of any questions or concerns please feel free to reach out. Plan discussed with Dr. Díaz Plan discussed with: Patient, Spouse, Other (RN) My Orders My Orders Orders - MICHELLE KRISHNAMURTHY RESIDENT Procedure Category Date Status Time Comprehensive LAB 04/29/25 In Process Metabolic Panel 11:23 PTPTT LAB 04/29/25 In Process 11:23 CC Plasma Assessment Blood Product Administration S: [id number] MICHELLE KRISHNAMURTHY RESIDENT Apr 29, 2025 12:46
[2025-04-29 12:47] LABS: Anion Gap 7 (5-15); BUN/Creatinine Ratio 25.0 (10.0-20.0); Blood Urea Nitrogen 22 mg/dL (9-23); Carbon Dioxide 25 mmol/L (20-31); Chloride 106 mmol/L (98-107); Glucose 105 mg/dL (74-106); Potassium 4.0 mmol/L (3.5-5.1); Sodium 138 mmol/L (136-145); Total Protein 6.8 g/dL (5.7-8.2)
[2025-04-29 12:50] LABS: Alanine Aminotransferase 286 U/L (7-40); Albumin 3.1 g/dL (3.2-4.8); Alkaline Phosphatase 128 U/L (46-116); Bilirubin, Total 1.7 mg/dL (0.2-1.0); Calcium 7.9 mg/dL (8.7-10.4)
[2025-04-29] MEDS: PANTOPRAZOLE 40 MG/10 ML VIAL INJ IV SCH (22:11)
[2025-04-30] VITALS (8 sets, daily range): BP systolic 107–145; BP diastolic 66–89; PULSE 69–81; RESP 16–20; TEMP 98–98.6; O2SAT 94–99
--- NOTE | 2025-04-30 10:11 | DVHPN2 ---
Progress Note Date Seen: Apr 30, 2025 Resident Creating Document: MICHELLE KRISHNAMURTHY RESIDENT Medical Necessity Reason Pt with a Central, PICC or Fol: No Subjective Review of Systems Patient seen and examined at bedside, with present at bedside Denies any nausea or vomiting Last bowel movement this a.m. No signs of active GI bleed Objective vital signs Vital Sign Date Time Temp Pulse Resp B/P (MAP) Pulse Ox O2 Delivery O2 Flow Rate FiO2 04/30/25 08:30 98.1 81 19 114/78 (90) 95 98.1 04/29/25 20:00 Room Air* 0 21 Total Intake and Output 04/29/25 04/29/25 04/30/25 15:00 23:00 07:00 Intake Total 500 ml 846 ml 840 ml Balance 500 ml 846 ml 840 ml medications Current Medications Medications Dose Ordered Sig/Lizandro Route Start Time Stop Time Status Last Admin Dose Admin Ondansetron HCl 4 mg Q4HP PRN IV 04/27/25 16:45 Acetaminophen 650 mg Q6HP PRN PO 04/27/25 16:45 Nitroglycerin 0.4 mg Q5MINP PRN SL 04/27/25 16:45 Morphine Sulfate 2 mg Q30M PRN IV 04/27/25 16:45 Thiamine HCl 100 mg DAILY IV 04/28/25 10:00 04/29/25 08:13 100 MG Folic Acid 1 mg/ Dextrose 50.2 ml @ 200 mls/hr DAILY INJ 04/28/25 10:00 04/30/25 09:34 200 MLS/HR Lorazepam 1 mg Q2HPRN PRN IV 04/27/25 17:00 Ipratropium [place] 0.5 mg Q6HPRN PRN NEB 04/27/25 17:15 Cancel Albuterol 2.5 mg Q6HPRN PRN NEB 04/27/25 17:15 Cancel Sucralfate 1 gm QID@0600,1130,1700,2200 PO 04/28/25 17:00 04/30/25 06:47 1 GM Pantoprazole Sodium 40 mg BID IV 04/29/25 22:00 04/30/25 09:27 40 MG Iron Sucrose 110 ml @ 110 mls/hr DAILY@1200 IV 04/30/25 12:00 9/23/25 12:59 Examination General Appearance: Cooperative. Well developed. In no distress Pulmonary/Respiratory: Equal bilateral air entry Cardiovascular/Chest: Regular rate and rhythm. Abdominal Exam: Normal bowel sounds. Distended abdomen, dullness to percussion. Nontender Neuro/Mental Status: A&O x4. Coherent. Thoughts/Psych: Normal thought pattern. Appropriate mood and affect. Good judgement and insight Skin Exam: Normal inspection. Normal color. Warm. Dry laboratory and microbiology Laboratory Tests 04/29/25 12:18 Test 04/29/25 12:18 Range/Units Serum Glucose 105 # 74-106 mg/dL Microbiology Date/Time Source Procedure Growth Status 04/27/25 10:59 Blood Blood Culture - Preliminary NO GROWTH AFTER 48 HOURS OF INCUBATION. 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 Mild pericholecystic, gallbladder wall edema/ stranding . Recommend HIDA scan to exclude cholecystitis.Bowel wall thickening of the large bowel as described most pronounced within the cecum and ascending colon which can be secondary to portal hypertension, colitis, inflammatory disease.Right renal cyst with peripheral calcifications measuring 4.3 cm. Recommend MRI abdomen with and without contrast to further characterize to exclude any type of nodular component/complexity Mesenteric edema. Discontinued IV Protonix drip and IV octreotide drip IV Protonix 40 mg b.i.d. Carafate 1 g q.i.d. Counseled patient on the importance of alcohol cessation Discontinue aspirin, NSAIDs, smoking Patient was instructed to follow up with GI in the outpatient clinic for management of possible cirrhosis and screening colonoscopy, patient demonstrated understanding. Thank you so much for the opportunity to consult on your patient. GI team will follow the patient. In case of any questions or concerns please feel free to reach out. Plan discussed with Dr. Díaz Plan discussed with: Patient, Spouse, Other (RN) My Orders My Orders Orders - MICHELLE KRISHNAMURTHY RESIDENT Procedure Category Date Status Time Pantoprazole PHA 04/29/25 In Process (Protonix) 22:00 CC Plasma Assessment Blood Product Administration S: [id number] MICHELLE KRISHNAMURTHY RESIDENT Apr 30, 2025 10:11
[2025-04-30] MEDS: IRON SUCROSE COMPLEX 110 ML IV SCH (11:57)
[2025-04-30 12:09] LABS: Hemoglobin 8.0 g/dL (13.5-17.5)
--- NOTE | 2025-04-30 12:10 | DVHPN2 ---
Subjective The patient is seen and examined at bedside. more alert awake today. Reviewed: Care Plan, H&P, Labs, Medications, Previous Orders, Radiology Changes from previous H/P or p: No Changes Eyes: No Pain, No Vision change, No Conjunctivae inflammation, No Eyelid inflammation, No Other, No Redness ENT: No Ear pain, No Ear discharge, No Nose pain, No Nose discharge, No Nose congestion, No Mouth pain, No Mouth swelling, No Throat pain, No Throat swelling, No Other Cardiovascular: No Chest Pain, No Palpitations, No Orthopnea, No Paroxysmal Noc. Dyspnea, No Edema, No Lt Headedness, No Other Respiratory: No Cough, No Dry; Shortness of breath, SOB with excertion, Wheezing; No Hemoptysis, No Pleuritic Pain, No Sputum, No Other Gastrointestinal: No Nausea, No Vomiting, No Abdominal Pain, No Diarrhea, No Constipation; Melena; No Hematochezia, No Other Genitourinary: No Dysuria, No Frequency, No Incontinence, No Hematuria, No Retention, No Other Musculoskeletal: No other, No neck pain, No shoulder pain, No arm pain, No back pain, No hand pain, No leg pain, No foot pain Skin: No Rash, No Lesions, No Jaundice, No Bruising, No Other Objective Vitals Vital Signs Date Time Temp Pulse Resp B/P (MAP) Pulse Ox O2 Delivery O2 Flow Rate FiO2 04/30/25 08:30 98.1 81 19 114/78 (90) 95 98.1 04/29/25 20:00 Room Air* 0 21 Intake/Output Intake and Output 04/30/25 07:00 Intake Total 2186 ml Balance 2186 ml Intake Oral 1686 ml IV Total 500 ml # Voids 10 # Bowel Movements 2 General Appearance: Alert, Oriented X3, Cooperative, mild distress HEENT: Atraumatic, PERRLA, EOMI, Mucous membr. moist/pink Neck: Supple Lungs: Clear to auscultation, Normal air movement Cardiovascular: Regular rate, Normal S1, Normal S2, No murmurs, Gallops, Rubs Abdomen: Normal bowel sounds, Soft, No tenderness Neuro: Cranial nerves 3-12 NL Psych/Mental Status: Mental status NL Medications Current Medications Medications Dose Ordered Sig/Lizandro Route Start Time Stop Time Status Last Admin Dose Admin Ondansetron HCl 4 mg Q4HP PRN IV 04/27/25 16:45 Acetaminophen 650 mg Q6HP PRN PO 04/27/25 16:45 Nitroglycerin 0.4 mg Q5MINP PRN SL 04/27/25 16:45 Morphine Sulfate 2 mg Q30M PRN IV 04/27/25 16:45 Thiamine HCl 100 mg DAILY IV 04/28/25 10:00 04/30/25 10:21 100 MG Folic Acid 1 mg/ Dextrose 50.2 ml @ 200 mls/hr DAILY INJ 04/28/25 10:00 04/30/25 09:34 200 MLS/HR Lorazepam 1 mg Q2HPRN PRN IV 04/27/25 17:00 Ipratropium [place] 0.5 mg Q6HPRN PRN NEB 04/27/25 17:15 Cancel Albuterol 2.5 mg Q6HPRN PRN NEB 04/27/25 17:15 Cancel Sucralfate 1 gm QID@0600,1130,1700,2200 PO 04/28/25 17:00 04/30/25 11:56 1 GM Pantoprazole Sodium 40 mg BID IV 04/29/25 22:00 04/30/25 09:27 40 MG Iron Sucrose 110 ml @ 110 mls/hr DAILY@1200 IV 04/30/25 12:00 05/04/25 12:59 04/30/25 11:57 110 MLS/HR Laboratory Results Chemistry Test 04/29/25 12:18 04/30/25 11:35 Albumin 3.1 g/dL (3.2-4.8) L Calcium Level 7.9 mg/dL (8.7-10.4) L Pending Total Protein 6.8 g/dL (5.7-8.2) Coagulation Test 04/29/25 12:18 Prothrombin Time 14.2 sec (9.3-11.8) H Prothrombin Time INR 1.38 (0.9-1.15) H Activated Partial Thromboplast Time 24.8 SEC (24.5-34.5) LFT Test 04/29/25 12:18 Alanine Aminotransferase (ALT) 286 U/L (7-40) H Alkaline Phosphatase 128 U/L (46-116) H Aspartate Amino Transferase (AST) 265 U/L (13-40) H Total Bilirubin 1.7 mg/dL (0.2-1.0) H Urinalysis Test 04/27/25 10:30 Urine Color Light-yellow (Yellow) Urine Clarity Clear (Clear) Urine pH 5.0 (5.0-9.0) Urine Specific [place] 1.015 (1.001-1.035) Urine Protein Negative (Negative) Urine Ketones 1+ (Negative) H Urine Blood Negative /uL (Negative) Urine Nitrite Negative (Negative) Urine Bilirubin Negative (Negative) Urine Urobilinogen Normal mg/dL (Negative) Urine Leukocyte Esterase Negative /uL (Negative) Urine RBC 1 /hpf (0 - 3) Urine Microscopic WBC /HPF (0-3) Urine Squamous Epithelial Cells Few /hpf (<5) Urine Bacteria None seen /hpf (None Seen) Urine Glucose Normal mg/dL (Normal) Microbiology Microbiology Date/Time Source Procedure Growth Status 04/27/25 10:59 Blood Blood Culture - Preliminary NO GROWTH AFTER 72 HOURS OF INCUBATION. Resulted Labs and/or images reviewed: Labs reviewed by me Assessment/Plan Assessment/Plan Lower GI bleed, Severe anemia, Lactic acidosis, Possible Sepsis, Leukocytosis, Esophageal varices Geoffrey esophagus. Continuing current management. The patient received two packed red blood cell transfusion. We will continuing to monitor H&H Continuing with IV fluid. Continuing with IV antibiotic. We will follow up with culture. Appreciate GI input DC protonix drip, start protonix IV bid EGD showed: One to 2+ congested distal esophageal varices without stigmata of recent bleeding. Underlying 2-3 cm sliding-type hiatal hernia with grade a to B erosive esophagitis and underlying possible Cheatham's . Mild portal hypertension gastropathy with some evidence of oozing and a small amounts of coffee-ground in the stomach .Otherwise normal examination up to the 2nd and 3rd part of the duodenum with no active bleeding except for increase oozing from biopsy Review EGD results with patient and at bedside. Advise to stop alcohol more than 15 minutes. DC when clear by GI specialist. This medical document was created using an electronic medical record system with [employer] direct computerized dictation system. Although this document has been carefully reviewed, there may still be some phonetic and typographical errors. These areas are purely typographical due to imperfections of the software programs, and do not reflect any compromise in the patient's medical care. Plan discussed with: Patient My Orders Orders - JAYDA SWEENEY MD Procedure Category Date Status Time Complete Blood Count LAB 04/30/25 In Process 10:56 Basic Metabolic Panel LAB 04/30/25 In Process 10:56 Date of Service: Apr 30, 2025 Billing Provider: JAYDA SWEENEY MD Common Visit Codes: [id number] INP/OBS CARE(HIGH) JAYDA SWEENEY MD Apr 30, 2025 12:10
--- NOTE | 2025-04-30 12:10 | DVHPN2 ---
Subjective The patient is seen and examined at bedside. more alert awake today. Reviewed: Care Plan, H&P, Labs, Medications, Previous Orders, Radiology Eyes: No Pain, No Vision change, No Conjunctivae inflammation, No Eyelid inflammation, No Other, No Redness ENT: No Ear pain, No Ear discharge, No Nose pain, No Nose discharge, No Nose congestion, No Mouth pain, No Mouth swelling, No Throat pain, No Throat swelling, No Other Cardiovascular: No Chest Pain, No Palpitations, No Orthopnea, No Paroxysmal Noc. Dyspnea, No Edema, No Lt Headedness, No Other Respiratory: No Cough, No Dry; Shortness of breath, SOB with excertion, Wheezing; No Hemoptysis, No Pleuritic Pain, No Sputum, No Other Gastrointestinal: No Nausea, No Vomiting, No Abdominal Pain, No Diarrhea, No Constipation; Melena; No Hematochezia, No Other Genitourinary: No Dysuria, No Frequency, No Incontinence, No Hematuria, No R etention, No Other Musculoskeletal: No other, No neck pain, No shoulder pain, No arm pain, No back pain, No hand pain, No leg pain, No foot pain Skin: No Rash, No Lesions, No Jaundice, No Bruising, No Other Objective Vitals Vital Signs Date Time Temp Pulse Resp B/P (MAP) Pulse Ox O2 Delivery O2 Flow Rate FiO2 04/30/25 08:30 98.1 81 19 114/78 (90) 95 98.1 04/29/25 20:00 Room Air* 0 21 Intake/Output Intake and Output 04/30/25 07:00 Intake Total 2186 ml Balance 2186 ml Intake Oral 1686 ml IV Total 500 ml # Voids 10 # Bowel Movements 2 General Appearance: Alert, Oriented X3, Cooperative, mild distress HEENT: Atraumatic, PERRLA, EOMI, Mucous membr. moist/pink Neck: Supple Lungs: Clear to auscultation, Normal air movement Cardiovascular: Regular rate, Normal S1, Normal S2, No murmurs, Gallops, Rubs Abdomen: Normal bowel sounds, Soft, No tenderness Neuro: Cranial nerves 3-12 NL Psych/Mental Status: Mental status NL Medications Current Medications Medications Dose Ordered Sig/Lizandro Route Start Time Stop Time Status Last Admin Dose Admin Ondansetron HCl 4 mg Q4HP PRN IV 04/27/25 16:45 Acetaminophen 650 mg Q6HP PRN PO 04/27/25 16:45 Nitroglycerin 0.4 mg Q5MINP PRN SL 04/27/25 16:45 Morphine Sulfate 2 mg Q30M PRN IV 04/27/25 16:45 Thiamine HCl 100 mg DAILY IV 04/28/25 10:00 04/30/25 10:21 100 MG Folic Acid 1 mg/ Dextrose 50.2 ml @ 200 mls/hr DAILY INJ 04/28/25 10:00 04/30/25 09:34 200 MLS/HR Lorazepam 1 mg Q2HPRN PRN IV 04/27/25 17:00 Ipratropium [place] 0.5 mg Q6HPRN PRN NEB 04/27/25 17:15 Cancel Albuterol 2.5 mg Q6HPRN PRN NEB 04/27/25 17:15 Cancel Sucralfate 1 gm QID@0600,1130,1700,2200 PO 04/28/25 17:00 04/30/25 11:56 1 GM Pantoprazole Sodium 40 mg BID IV 04/29/25 22:00 04/30/25 09:27 40 MG Iron Sucrose 110 ml @ 110 mls/hr DAILY@1200 IV 04/30/25 12:00 05/04/25 12:59 04/30/25 11:57 110 MLS/HR Laboratory Results Chemistry Test 04/29/25 12:18 04/30/25 11:35 Albumin 3.1 g/dL (3.2-4.8) L Calcium Level 7.9 mg/dL (8.7-10.4) L Pending Total Protein 6.8 g/dL (5.7-8.2) Coagulation Test 04/29/25 12:18 Prothrombin Time 14.2 sec (9.3-11.8) H Prothrombin Time INR 1.38 (0.9-1.15) H Activated Partial Thromboplast Time 24.8 SEC (24.5-34.5) LFT Test 04/29/25 12:18 Alanine Aminotransferase (ALT) 286 U/L (7-40) H Alkaline Phosphatase 128 U/L (46-116) H Aspartate Amino Transferase (AST) 265 U/L (13-40) H Total Bilirubin 1.7 mg/dL (0.2-1.0) H Urinalysis Test 04/27/25 10:30 Urine Color Light-yellow (Yellow) Urine Clarity Clear (Clear) Urine pH 5.0 (5.0-9.0) Urine Specific [place] 1.015 (1.001-1.035) Urine Protein Negative (Negative) Urine Ketones 1+ (Negative) H Urine Blood Negative /uL (Negative) Urine Nitrite Negative (Negative) Urine Bilirubin Negative (Negative) Urine Urobilinogen Normal mg/dL (Negative) Urine Leukocyte Esterase Negative /uL (Negative) Urine RBC 1 /hpf (0 - 3) Urine Microscopic WBC /HPF (0-3) Urine Squamous Epithelial Cells Few /hpf (<5) Urine Bacteria None seen /hpf (None Seen) Urine Glucose Normal mg/dL (Normal) Microbiology Microbiology Date/Time Source Procedure Growth Status 04/27/25 10:59 Blood Blood Culture - Preliminary NO GROWTH AFTER 72 HOURS OF INCUBATION. Resulted Assessment/Plan Assessment/Plan Lower GI bleed, Severe anemia, Lactic acidosis, Possible Sepsis, Leukocytosis, Esophageal varices Geoffrey esophagus. Continuing current management. The patient received two packed red blood cell transfusion. We will continuing to monitor H&H Continuing with IV fluid. Continuing with IV antibiotic. We will follow up with culture. Appreciate GI input DC protonix drip, start protonix PO bid EGD showed: One to 2+ congested distal esophageal varices without stigmata of recent bleeding. Underlying 2-3 cm sliding-type hiatal hernia with grade a to B erosive esophagitis and underlying possible Cheatham's . Mild portal hypertension gastropathy with some evidence of oozing and a small amounts of coffee-ground in the stomach .Otherwise normal examination up to the 2nd and 3rd part of the duodenum with no active bleeding except for increase oozing from biopsy Review EGD results with patient and at bedside. Advise to stop alcohol more than 15 minutes. This medical document was created using an electronic medical record system with [employer] direct computerized dictation system. Although this document has been carefully reviewed, there may still be some phonetic and typographical errors. These areas are purely typographical due to imperfections of the software programs, and do not reflect any compromise in the patient's medical care. My Orders Orders - JAYDA SWEENEY MD Procedure Category Date Status Time Complete Blood Count LAB 04/30/25 In Process 10:56 Basic Metabolic Panel LAB 04/30/25 In Process 10:56 JAYDA SWEENEY MD Apr 30, 2025 12:10
[2025-04-30 12:11] LABS: Chloride 104 mmol/L (98-107); Hematocrit 24.6 % (41.0-53.0); Mean Corpuscular Hemoglobin 27.2 pg (28.0-32.0); Mean Corpuscular Volume 83.3 fL (80.0-100.0); Nucleated Red Blood Cells % 0.8 %; Potassium 3.7 mmol/L (3.5-5.1); Sodium 136 mmol/L (136-145)
[2025-04-30 12:12] LABS: Anion Gap 6 (5-15); Carbon Dioxide 26 mmol/L (20-31)
[2025-04-30 12:13] LABS: Calcium 7.6 mg/dL (8.7-10.4)
[2025-04-30 12:17] LABS: BUN/Creatinine Ratio 24.0 (10.0-20.0); Blood Urea Nitrogen 18 mg/dL (9-23); Glucose 96 mg/dL (74-106)
[2025-05-01] VITALS (8 sets, daily range): BP systolic 102–143; BP diastolic 69–91; PULSE 77–85; RESP 18–20; TEMP 98.1–99.5; O2SAT 95–98
[2025-05-01 08:08] LABS: Hematocrit 21.7 % (41.0-53.0); Hemoglobin 7.1 g/dL (13.5-17.5)
[2025-05-01 08:10] LABS: Mean Corpuscular Hemoglobin 26.9 pg (28.0-32.0); Mean Corpuscular Volume 82.3 fL (80.0-100.0)
[2025-05-01 08:24] LABS: Anion Gap 9 (5-15); Carbon Dioxide 23 mmol/L (20-31); Chloride 105 mmol/L (98-107); Potassium 3.5 mmol/L (3.5-5.1); Sodium 137 mmol/L (136-145)
[2025-05-01 08:30] LABS: BUN/Creatinine Ratio 13.7 (10.0-20.0); Blood Urea Nitrogen 10 mg/dL (9-23); Glucose 99 mg/dL (74-106)
[2025-05-01 08:32] LABS: Calcium 7.7 mg/dL (8.7-10.4)
[2025-05-01 09:41] LABS: Nucleated Red Blood Cells % 2.0 %; Total Cells Counted 100.0 (100)
[2025-05-01 09:42] LABS: Anisocytosis Slight
--- NOTE | 2025-05-01 14:49 | DVHPN2 ---
Subjective The patient is seen and examined at bedside. more alert awake today. Reviewed: Care Plan, H&P, Labs, Medications, Previous Orders, Radiology Changes from previous H/P or p: No Changes Eyes: No Pain, No Vision change, No Conjunctivae inflammation, No Eyelid inflammation, No Other, No Redness ENT: No Ear pain, No Ear discharge, No Nose pain, No Nose discharge, No Nose congestion, No Mouth pain, No Mouth swelling, No Throat pain, No Throat swelling, No Other Cardiovascular: No Chest Pain, No Palpitations, No Orthopnea, No Paroxysmal Noc. Dyspnea, No Edema, No Lt Headedness, No Other Respiratory: No Cough, No Dry; Shortness of breath, SOB with excertion, W heezing; No Hemoptysis, No Pleuritic Pain, No Sputum, No Other Gastrointestinal: No Nausea, No Vomiting, No Abdominal Pain, No Diarrhea, No Constipation; Melena; No Hematochezia, No Other Genitourinary: No Dysuria, No Frequency, No Incontinence, No Hematuria, No Retention, No Other Musculoskeletal: No other, No neck pain, No shoulder pain, No arm pain, No back pain, No hand pain, No leg pain, No foot pain Skin: No Rash, No Lesions, No Jaundice, No Bruising, No Other Objective Vitals Vital Signs Date Time Temp Pulse Resp B/P (MAP) Pulse Ox O2 Delivery O2 Flow Rate FiO2 05/01/25 09:00 98.7 78 20 132/83 (99) 97 98.7 05/01/25 08:00 Room Air* 0 21 Intake/Output Intake and Output 05/01/25 07:00 Intake Total 1535 ml Balance 1535 ml Intake Oral 1225 ml IV Total 310 ml # Voids 4 General Appearance: Alert, Oriented X3, Cooperative, mild distress HEENT: Atraumatic, PERRLA, EOMI, Mucous membr. moist/pink Neck: Supple Lungs: Clear to auscultation, Normal air movement Cardiovascular: Regular rate, Normal S1, Normal S2, No murmurs, Gallops, Rubs Abdomen: Normal bowel sounds, Soft, No tenderness Neuro: Cranial nerves 3-12 NL Psych/Mental Status: Mental status NL Medications Current Medications Medications Dose Ordered Sig/Lizandro Route Start Time Stop Time Status Last Admin Dose Admin Ondansetron HCl 4 mg Q4HP PRN IV 04/27/25 16:45 Acetaminophen 650 mg Q6HP PRN PO 04/27/25 16:45 Nitroglycerin 0.4 mg Q5MINP PRN SL 04/27/25 16:45 Morphine Sulfate 2 mg Q30M PRN IV 04/27/25 16:45 Thiamine HCl 100 mg DAILY IV 04/28/25 10:00 05/01/25 09:50 100 MG Folic Acid 1 mg/ Dextrose 50.2 ml @ 200 mls/hr DAILY INJ 04/28/25 10:00 05/01/25 10:00 200 MLS/HR Lorazepam 1 mg Q2HPRN PRN IV 04/27/25 17:00 Ipratropium [place] 0.5 mg Q6HPRN PRN NEB 04/27/25 17:15 Cancel Albuterol 2.5 mg Q6HPRN PRN NEB 04/27/25 17:15 Cancel Sucralfate 1 gm QID@0600,1130,1700,2200 PO 04/28/25 17:00 05/01/25 09:50 1 GM Pantoprazole Sodium 40 mg BID IV 04/29/25 22:00 05/01/25 09:50 40 MG Iron Sucrose 110 ml @ 110 mls/hr DAILY@1200 IV 04/30/25 12:00 05/04/25 12:59 05/01/25 09:50 110 MLS/HR Laboratory Results Laboratory Tests 05/01/25 07:00 Chemistry Test 05/01/25 07:00 Calcium Level 7.7 mg/dL (8.7-10.4) L Urinalysis Test 04/27/25 10:30 Urine Color Light-yellow (Yellow) Urine Clarity Clear (Clear) Urine pH 5.0 (5.0-9.0) Urine Specific [place] 1.015 (1.001-1.035) Urine Protein Negative (Negative) Urine Ketones 1+ (Negative) H Urine Blood Negative /uL (Negative) Urine Nitrite Negative (Negative) Urine Bilirubin Negative (Negative) Urine Urobilinogen Normal mg/dL (Negative) Urine Leukocyte Esterase Negative /uL (Negative) Urine RBC 1 /hpf (0 - 3) Urine Microscopic WBC /HPF (0-3) Urine Squamous Epithelial Cells Few /hpf (<5) Urine Bacteria None seen /hpf (None Seen) Urine Glucose Normal mg/dL (Normal) Microbiology Microbiology Date/Time Source Procedure Growth Status 04/27/25 10:59 Blood Blood Culture - Preliminary NO GROWTH AFTER 72 HOURS OF INCUBATION. Resulted Assessment/Plan Assessment/Plan Lower GI bleed, Severe anemia, Lactic acidosis, Possible Sepsis, Leukocytosis, Esophageal varices Geoffrey esophagus. Continuing current management. The patient received two packed red blood cell transfusion. We will continuing to monitor H&H Continuing with IV fluid. Continuing with IV antibiotic. We will follow up with culture. Appreciate GI input DC protonix drip, start protonix IV bid EGD showed: One to 2+ congested distal esophageal varices without stigmata of recent bleeding. Underlying 2-3 cm sliding-type hiatal hernia with grade a to B erosive esophagitis and underlying possible Cheatham's . Mild portal hypertension gastropathy with some evidence of oozing and a small amounts of coffee-ground in the stomach .Otherwise normal examination up to the 2nd and 3rd part of the duodenum with no active bleeding except for increase oozing from biopsy Review EGD results with patient and at bedside. Advise to stop alcohol more than 15 minutes. Hb drop today to 7.1. Will monitor. DC when clear by GI specialist. This medical document was created using an electronic medical record system with [employer] direct computerized dictation system. Although this document has been carefully reviewed, there may still be some phonetic and typographical errors. These areas are purely typographical due to imperfections of the software programs, and do not reflect any compromise in the patient's medical care. Plan discussed with: Patient My Orders Orders - JAYDA SWEENEY MD Procedure Category Date Status Time Complete Blood Count LAB 05/02/25 Verified 05:00 Complete Blood Count LAB 05/03/25 Verified 05:00 Complete Blood Count LAB 05/04/25 Verified 05:00 Complete Blood Count LAB 05/05/25 Verified 05:00 Basic Metabolic Panel LAB 05/02/25 Verified 05:00 Basic Metabolic Panel LAB 05/03/25 Verified 05:00 Basic Metabolic Panel LAB 05/04/25 Verified 05:00 Basic Metabolic Panel LAB 05/05/25 Verified 05:00 Date of Service: May 01, 2025 Billing Provider: JAYDA SWEENEY MD Common Visit Codes: [id number] INP/OBS CARE(HIGH) JAYDA SWEENEY MD May 01, 2025 14:49
--- NOTE | 2025-05-01 21:57 | DVHPN2 ---
Progress Note - Dictate Date Seen: May 01, 2025 Medical Necessity Reason Pt with a Central, PICC or Fol: No Subjective No new complaints Mild shortness of breath Tolerating diet No GI bleeding reported Hemoglobin dropped down to 7.1 Liver enzymes are trending down Two bowel movements reported yesterday vital signs Vital Sign Date Time Temp Pulse Resp B/P (MAP) Pulse Ox O2 Delivery O2 Flow Rate FiO2 05/01/25 21:00 99.5 83 18 140/84 (102) 95 99.5 05/01/25 20:19 Room Air* 0 21 Total Intake and Output 04/30/25 04/30/25 05/01/25 15:00 23:00 07:00 Intake Total 310 ml 800 ml 425 ml Balance 310 ml 800 ml 425 ml medications Current Medications Medications Dose Ordered Sig/Lizandro Route Start Time Stop Time Status Last Admin Dose Admin Ondansetron HCl 4 mg Q4HP PRN IV 04/27/25 16:45 Acetaminophen 650 mg Q6HP PRN PO 04/27/25 16:45 Nitroglycerin 0.4 mg Q5MINP PRN SL 04/27/25 16:45 Morphine Sulfate 2 mg Q30M PRN IV 04/27/25 16:45 Thiamine HCl 100 mg DAILY IV 04/28/25 10:00 05/01/25 09:50 100 MG Folic Acid 1 mg/ Dextrose 50.2 ml @ 200 mls/hr DAILY INJ 04/28/25 10:00 05/01/25 10:00 200 MLS/HR Lorazepam 1 mg Q2HPRN PRN IV 04/27/25 17:00 Ipratropium [place] 0.5 mg Q6HPRN PRN NEB 04/27/25 17:15 Cancel Albuterol 2.5 mg Q6HPRN PRN NEB 04/27/25 17:15 Cancel Sucralfate 1 gm QID@0600,1130,1700,2200 PO 04/28/25 17:00 05/01/25 21:27 1 GM Pantoprazole Sodium 40 mg BID IV 04/29/25 22:00 05/01/25 21:27 40 MG Iron Sucrose 110 ml @ 110 mls/hr DAILY@1200 IV 04/30/25 12:00 05/04/25 12:59 05/01/25 09:50 110 MLS/HR objective General Appearance: Alert, Oriented X3, Cooperative, no distress HEENT: Atraumatic, PERRLA, EOMI, Mucous membr. moist/pink Neck: Supple Lungs: Clear to auscultation, Normal air movement Cardiovascular: Regular rate, Normal S1, Normal S2, No murmurs, Gallops, Rubs Abdomen: Normal bowel sounds, Soft, No tenderness Neuro: Cranial nerves 3-12 NL Psych/Mental Status: Mental status NL laboratory and microbiology Laboratory Tests 05/01/25 07:00 Test 05/01/25 07:00 Range/Units Serum Glucose 99 74-106 mg/dL Problems(with codes): (1) Lower GI bleed (2) Severe anemia (3) Metabolic acidosis (4) Acute respiratory failure (5) Elevated liver function tests (6) Alcoholic hepatitis Prognosis PLAN protonix IV bid; monitor labs, transfuse 1 unit PRBC if hemoglobin is less than seven Advance to full liquid diet tomorrow if H&H is stable EGD showed: One to 2+ congested distal esophageal varices without stigmata of recent bleeding. Underlying 2-3 cm sliding-type hiatal hernia with grade a to B erosive esophagitis and underlying possible Cheatham's . Mild portal hypertension gastropathy with some evidence of oozing and a small amounts of coffee-ground in the stomach .Otherwise normal examination up to the 2nd and 3rd part of the duodenum with no active bleeding except for increase oozing from biopsy Advise to stop alcohol Maddrey discrimination function 16.4 points suggestive of good prognosis Patient does not need steroids Mild shortness of breath noted, get 2D echo to rule out alcoholic cardiomyopathy I will follow up patient with you Dietary Evaluation Review Recommendations by RD: Dietary education by RD Comments: 1) Continue micronutrient supplementation 2) Advance to cardiac diet when medically feasible 3) Refer to outpatient RD for weight management 4) Follow-up with gastroenterology and cardiology 5) Follow-up with mental health social worker r/t ETOH abuse 6) Continue to monitor I&O, labs, and skin integrity Expected Outcomes/Goals: 1) appetite and labs to improve 2) diet to advance 3) gradual wt loss 4) f/u in 3-5 days Plan discussed with: Patient, Other (Dr Eisenberg) CC Plasma Assessment Blood Product Administration S: [id number] RADHIKA BAE MD May 01, 2025 21:57
[2025-05-02] VITALS (10 sets, daily range): BP systolic 74–147; BP diastolic 70–92; PULSE 64–87; RESP 20; TEMP 97.7–100.1; O2SAT 93–97
[2025-05-02 06:39] LABS: Hematocrit 22.2 % (41.0-53.0)
[2025-05-02 06:42] LABS: Hemoglobin 7.4 g/dL (13.5-17.5); Mean Corpuscular Hemoglobin 27.6 pg (28.0-32.0); Mean Corpuscular Volume 82.6 fL (80.0-100.0); Nucleated Red Blood Cells % 1.8 %
[2025-05-02 06:56] LABS: Anion Gap 9 (5-15); BUN/Creatinine Ratio 8.1 (10.0-20.0); Carbon Dioxide 24 mmol/L (20-31); Chloride 105 mmol/L (98-107); Glucose 105 mg/dL (74-106); Sodium 138 mmol/L (136-145); Total Protein 5.9 g/dL (5.7-8.2)
[2025-05-02 07:10] LABS: Alanine Aminotransferase 167 U/L (7-40); Albumin 2.7 g/dL (3.2-4.8); Alkaline Phosphatase 198 U/L (46-116); Bilirubin, Total 1.7 mg/dL (0.2-1.0); Blood Urea Nitrogen 6 mg/dL (9-23); Calcium 7.9 mg/dL (8.7-10.4); Lipase 123 U/L (12-53); Potassium 3.4 mmol/L (3.5-5.1)
[2025-05-02] MEDS ORDERED: IPRATROPIUM BROM 0.5 MG/2.5ML INH SOL NEB SCH (12:00)
[2025-05-02] MEDS ORDERED: ALBUTEROL SULF 2.5 MG/0.5ML(0.5%) NEB SOLN NEB PRN (12:00)
[2025-05-02] MEDS ORDERED: IPRATROPIUM BROM 0.5 MG/2.5ML INH SOL NEB PRN (12:15)
--- NOTE | 2025-05-02 12:21 | DVHPN2 ---
Subjective The patient is seen and examined at bedside. more alert awake today. Reviewed: Care Plan, H&P, Labs, Medications, Previous Orders, Radiology Changes from previous H/P or p: No Changes Eyes: No Pain, No Vision change, No Conjunctivae inflammation, No Eyelid inflammation, No Other, No Redness ENT: No Ear pain, No Ear discharge, No Nose pain, No Nose discharge, No Nose congestion, No Mouth pain, No Mouth swelling, No Throat pain, No Throat swelling, No Other Cardiovascular: No Chest Pain, No Palpitations, No Orthopnea, No Paroxysmal Noc. Dyspnea, No Edema, No Lt Headedness, No Other Respiratory: No Cough, No Dry; Shortness of breath, SOB with excertion, W heezing; No Hemoptysis, No Pleuritic Pain, No Sputum, No Other Gastrointestinal: No Nausea, No Vomiting, No Abdominal Pain, No Diarrhea, No Constipation; Melena; No Hematochezia, No Other Genitourinary: No Dysuria, No Frequency, No Incontinence, No Hematuria, No Retention, No Other Musculoskeletal: No other, No neck pain, No shoulder pain, No arm pain, No back pain, No hand pain, No leg pain, No foot pain Skin: No Rash, No Lesions, No Jaundice, No Bruising, No Other Objective Vitals Vital Signs Date Time Temp Pulse Resp B/P (MAP) Pulse Ox O2 Delivery O2 Flow Rate FiO2 05/02/25 09:00 98.7 79 20 126/77 (93) 97 98.7 05/01/25 20:19 Room Air* 0 21 Intake/Output Intake and Output 05/02/25 07:00 Intake Total 1478.2 ml Balance 1478.2 ml Intake Oral 1318 ml IV Total 160.2 ml # Voids 4 General Appearance: Alert, Oriented X3, Cooperative, mild distress HEENT: Atraumatic, PERRLA, EOMI, Mucous membr. moist/pink Neck: Supple Lungs: Clear to auscultation, Normal air movement Cardiovascular: Regular rate, Normal S1, Normal S2, No murmurs, Gallops, Rubs Abdomen: Normal bowel sounds, Soft, No tenderness Neuro: Cranial nerves 3-12 NL Psych/Mental Status: Mental status NL Medications Current Medications Medications Dose Ordered Sig/Lizandro Route Start Time Stop Time Status Last Admin Dose Admin Ondansetron HCl 4 mg Q4HP PRN IV 9/16/25 16:45 Acetaminophen 650 mg Q6HP PRN PO 04/27/25 16:45 Nitroglycerin 0.4 mg Q5MINP PRN SL 04/27/25 16:45 Morphine Sulfate 2 mg Q30M PRN IV 04/27/25 16:45 Thiamine HCl 100 mg DAILY IV 04/28/25 10:00 05/02/25 09:32 100 MG Folic Acid 1 mg/ Dextrose 50.2 ml @ 200 mls/hr DAILY INJ 04/28/25 10:00 05/02/25 09:32 200 MLS/HR Lorazepam 1 mg Q2HPRN PRN IV 04/27/25 17:00 Ipratropium [place] 0.5 mg Q6HPRN PRN NEB 04/27/25 17:15 Cancel Albuterol 2.5 mg Q6HPRN PRN NEB 04/27/25 17:15 Cancel Sucralfate 1 gm QID@0600,1130,1700,2200 PO 04/28/25 17:00 05/02/25 09:32 1 GM Pantoprazole Sodium 40 mg BID IV 04/29/25 22:00 05/02/25 09:32 40 MG Iron Sucrose 110 ml @ 110 mls/hr DAILY@1200 IV 04/30/25 12:00 05/04/25 12:59 05/02/25 11:19 110 MLS/HR Albuterol 2.5 mg Q6HPRN PRN NEB 05/02/25 12:00 UNV Ipratropium [place] 0.5 mg Q6HR PRN NEB 05/02/25 12:15 UNV Laboratory Results Laboratory Tests 05/02/25 06:11 Chemistry Test 05/02/25 06:11 Albumin 2.7 g/dL (3.2-4.8) L Calcium Level 7.9 mg/dL (8.7-10.4) L Total Protein 5.9 g/dL (5.7-8.2) Lipid panel Test 05/02/25 06:11 Lipase 123 U/L (12-53) H LFT Test 05/02/25 06:11 Alanine Aminotransferase (ALT) 167 U/L (7-40) H Alkaline Phosphatase 198 U/L (46-116) H Aspartate Amino Transferase (AST) 118 U/L (13-40) H Total Bilirubin 1.7 mg/dL (0.2-1.0) H Urinalysis Test 04/27/25 10:30 Urine Color Light-yellow (Yellow) Urine Clarity Clear (Clear) Urine pH 5.0 (5.0-9.0) Urine Specific [place] 1.015 (1.001-1.035) Urine Protein Negative (Negative) Urine Ketones 1+ (Negative) H Urine Blood Negative /uL (Negative) Urine Nitrite Negative (Negative) Urine Bilirubin Negative (Negative) Urine Urobilinogen Normal mg/dL (Negative) Urine Leukocyte Esterase Negative /uL (Negative) Urine RBC 1 /hpf (0 - 3) Urine Microscopic WBC /HPF (0-3) Urine Squamous Epithelial Cells Few /hpf (<5) Urine Bacteria None seen /hpf (None Seen) Urine Glucose Normal mg/dL (Normal) Microbiology Microbiology Date/Time Source Procedure Growth Status 04/27/25 10:59 Blood Blood Culture - Final NO GROWTH AFTER 5 DAYS OF INCUBATION. Complete Labs and/or images reviewed: Labs reviewed by me Assessment/Plan Assessment/Plan Lower GI bleed, Severe anemia, Lactic acidosis, Possible Sepsis, Leukocytosis, Esophageal varices Geoffrey esophagus. Continuing current management. The patient received two packed red blood cell transfusion. We will continuing to monitor H&H Continuing with IV fluid. Continuing with IV antibiotic. We will follow up with culture. Appreciate GI input DC protonix drip, start protonix IV bid EGD showed: One to 2+ congested distal esophageal varices without stigmata of recent bleeding. Underlying 2-3 cm sliding-type hiatal hernia with grade a to B erosive esophagitis and underlying possible Cheatham's . Mild portal hypertension gastropathy with some evidence of oozing and a small amounts of coffee-ground in the stomach .Otherwise normal examination up to the 2nd and 3rd part of the duodenum with no active bleeding except for increase oozing from biopsy Review EGD results with patient and at bedside. Advise to stop alcohol more than 15 minutes. Hb improved today to 7.4. Will monitor. Will order 2D echo to rule out alcohol induced cardiomyopathy DC when clear by GI specialist. This medical document was created using an electronic medical record system with M[employer] direct computerized dictation system. Although this document has been carefully reviewed, there may still be some phonetic and typographical errors. These areas are purely typographical due to imperfections of the software programs, and do not reflect any compromise in the patient's medical care. Plan discussed with: Patient My Orders Orders - JAYDA SWEENEY MD Procedure Category Date Status Time Full Liq Diet DIET 05/02/25 Transmitted Lunch Albuterol Medneb PHA 05/02/25 Logged (Ventolin Medneb) 12:00 Ipratropium Medneb PHA 05/02/25 Logged (Atrovent Medneb) 12:15 Date of Service: May 02, 2025 Billing Provider: JAYDA SWEENEY MD Common Visit Codes: [id number] INP/OBS CARE(HIGH) JAYDA SWEENEY MD May 02, 2025 12:21
--- NOTE | 2025-05-02 21:29 | DVHPN2 ---
Progress Note - Dictate Date Seen: May 02, 2025 Medical Necessity Reason Pt with a Central, PICC or Fol: No Subjective No new complaints Mild shortness of breath; wants to bring his inhalers from home Tolerating diet No GI bleeding reported Hemoglobin stable at 7.4 Liver enzymes are trending down Two bowel movements reported yesterday vital signs Vital Sign Date Time Temp Pulse Resp B/P (MAP) Pulse Ox O2 Delivery O2 Flow Rate FiO2 05/02/25 21:00 100.1 83 20 147/76 (99) 94 100.1 05/02/25 18:58 Room Air* 0 21 Total Intake and Output 05/01/25 05/01/25 05/02/25 15:00 23:00 07:00 Intake Total 428 ml 450.2 ml 600 ml Balance 428 ml 450.2 ml 600 ml medications Current Medications Medications Dose Ordered Sig/Lizandro Route Start Time Stop Time Status Last Admin Dose Admin Ondansetron HCl 4 mg Q4HP PRN IV 04/27/25 16:45 Acetaminophen 650 mg Q6HP PRN PO 04/27/25 16:45 Nitroglycerin 0.4 mg Q5MINP PRN SL 04/27/25 16:45 Morphine Sulfate 2 mg Q30M PRN IV 04/27/25 16:45 Thiamine HCl 100 mg DAILY IV 04/28/25 10:00 05/02/25 09:32 100 MG Folic Acid 1 mg/ Dextrose 50.2 ml @ 200 mls/hr DAILY INJ 04/28/25 10:00 05/02/25 09:32 200 MLS/HR Lorazepam 1 mg Q2HPRN PRN IV 04/27/25 17:00 Ipratropium [place] 0.5 mg Q6HPRN PRN NEB 04/27/25 17:15 Cancel Albuterol 2.5 mg Q6HPRN PRN NEB 04/27/25 17:15 Cancel Sucralfate 1 gm QID@0600,1130,1700,2200 PO 04/28/25 17:00 05/02/25 21:22 1 GM Pantoprazole Sodium 40 mg BID IV 04/29/25 22:00 05/02/25 21:23 40 MG Iron Sucrose 110 ml @ 110 mls/hr DAILY@1200 IV 04/30/25 12:00 05/04/25 12:59 05/02/25 11:19 110 MLS/HR Albuterol 2.5 mg Q6HPRN PRN NEB 05/02/25 12:00 Ipratropium [place] 0.5 mg Q6HR PRN NEB 05/02/25 12:15 objective General Appearance: Alert, Oriented X3, Cooperative, no distress HEENT: Atraumatic, PERRLA, EOMI, Mucous membr. moist/pink Neck: Supple Lungs: Clear to auscultation, Normal air movement Cardiovascular: Regular rate, Normal S1, Normal S2, No murmurs, Gallops, Rubs Abdomen: Normal bowel sounds, Soft, No tenderness Neuro: Cranial nerves 3-12 NL Psych/Mental Status: Mental status NL laboratory and microbiology Laboratory Tests 05/02/25 06:11 Test 05/02/25 06:11 Range/Units Serum Glucose 105 74-106 mg/dL Problems(with codes): (1) Elevated liver function tests (2) Alcoholic hepatitis (3) Lower GI bleed (4) Severe anemia (5) Metabolic acidosis Prognosis PLAN protonix IV bid; monitor labs, transfuse 1 unit PRBC if hemoglobin is less than seven Patient is receiving IV iron therapy this can be change to oral Advance diet tomorrow if H&H is stable EGD showed: One to 2+ congested distal esophageal varices without stigmata of recent bleeding. Underlying 2-3 cm sliding-type hiatal hernia with grade a to B erosive esophagitis and underlying possible Cheatham's . Mild portal hypertension gastropathy with some evidence of oozing and a small amounts of coffee-ground in the stomach .Otherwise normal examination up to the 2nd and 3rd part of the duodenum with no active bleeding except for increase oozing from biopsy Advise to stop alcohol [facility] 16.4 points suggestive of good prognosis Patient does not need steroids Mild shortness of breath noted, get 2D echo to rule out alcoholic cardiomyopathy Dietary Evaluation Review Recommendations by RD: Dietary education by RD Comments: 1) Continue micronutrient supplementation 2) Advance to cardiac diet when medically feasible 3) Refer to outpatient RD for weight management 4) Follow-up with gastroenterology and cardiology 5) Follow-up with social insurance adviser r/t ETOH abuse 6) Continue to monitor I&O, labs, and skin integrity Expected Outcomes/Goals: 1) appetite and labs to improve 2) diet to advance 3) gradual wt loss 4) f/u in 3-5 days Plan discussed with: Patient, Other CC Plasma Assessment Blood Product Administration S: [id number] RADHIKA BAE MD May 02, 2025 21:29
[2025-05-03] VITALS (10 sets, daily range): BP systolic 111–140; BP diastolic 70–85; PULSE 76–87; RESP 18–20; TEMP 98.4–99.3; O2SAT 95–98
[2025-05-03 06:39] LABS: Hematocrit 22.5 % (41.0-53.0); Hemoglobin 7.3 g/dL (13.5-17.5); Mean Corpuscular Hemoglobin 27.0 pg (28.0-32.0); Mean Corpuscular Volume 83.3 fL (80.0-100.0); Nucleated Red Blood Cells % 1.1 %
[2025-05-03 06:45] LABS: Chloride 107 mmol/L (98-107); Sodium 139 mmol/L (136-145)
[2025-05-03 06:46] LABS: Anion Gap 10 (5-15); Carbon Dioxide 22 mmol/L (20-31)
[2025-05-03 06:51] LABS: BUN/Creatinine Ratio 7.5 (10.0-20.0); Glucose 94 mg/dL (74-106)
[2025-05-03 06:52] LABS: Blood Urea Nitrogen 6 mg/dL (9-23); Calcium 8.1 mg/dL (8.7-10.4); Potassium 3.3 mmol/L (3.5-5.1)
--- NOTE | 2025-05-03 13:03 | DVHSR ---
APPROVED REPORT EXAM: Two-dimensional and M-mode echocardiogram with Doppler and color Doppler. Blood Pressure: 111/70 mmHg INDICATION r/o Cardiomyopathy RISK FACTORS Height: 5'7", Weight: 252 DIMENSIONS LVDd5.2 (3.8-5.7cm)LA (2D)5.2 (1.9-4.0cm)Aortic Root2.9 (2.0-3.7cm) LVDs3.3 (2.5-4.0cm)LA (MM) (1.9-4.0cm)Aortic Cusp Exc1.7 (1.5-2.0cm) EF (%) 65.0 (55-70%)Rt. Atrium4.9 (1.9-4.0cm)Asc. Aorta3.2 cm IVSd1.1 (0.7-1.1cm)RV (D)5.0 (1.8-2.4cm) PWd1.4 (0.7-1.1cm) Mitral Valve MitralMitral Stenosis E wave1.19m/sMV Mean GR.mmHg A wave1.14m/sMV Peak GR.mmHg E/A ratio1.02D MVAcm2 DECEL [id number] 1/2 Tim[place] Aortic Valve Aortic ValveAortic Stenosis V11.32m/Gifty Mean GR.9mmHg V22.03m/Gifty Peak GR.17mmHg LVOT Diameter2.1 (1.8-2.4cm)Doppler AVA2.25cm2 Pulmonic Valve V21.34m/s Conclusion lvef 60 % grade 1 diaistolic dysfunction normal rv function left atrium enlarged no seere valve abnormalities noted trivial pericardial effusino noted
--- NOTE | 2025-05-03 14:32 | DVHPN2 ---
Progress Note Date Seen: May 03, 2025 Resident Creating Document: MICHELLE KRISHNAMURTHY RESIDENT Medical Necessity Reason Pt with a Central, PICC or Fol: No Subjective Review of Systems Patient seen and examined at bedside Denies any nausea or vomiting Notes having last bowel movement today, dark in color Tolerating diet Objective vital signs Vital Sign Date Time Temp Pulse Resp B/P (MAP) Pulse Ox O2 Delivery O2 Flow Rate FiO2 05/03/25 12:47 99.3 77 18 140/82 (101) 95 99.3 05/03/25 08:15 Room Air* 0 21 Total Intake and Output 05/02/25 05/02/25 05/03/25 14:59 22:59 06:59 Intake Total 168.2 ml 1428 ml 750 ml Balance 168.2 ml 1428 ml 750 ml medications Current Medications Medications Dose Ordered Sig/Lizandro Route Start Time Stop Time Status Last Admin Dose Admin Ondansetron HCl 4 mg Q4HP PRN IV 04/27/25 16:45 Acetaminophen 650 mg Q6HP PRN PO 04/27/25 16:45 Nitroglycerin 0.4 mg Q5MINP PRN SL 04/27/25 16:45 Morphine Sulfate 2 mg Q30M PRN IV 04/27/25 16:45 Thiamine HCl 100 mg DAILY IV 04/28/25 10:00 05/03/25 10:06 100 MG Folic Acid 1 mg/ Dextrose 50.2 ml @ 200 mls/hr DAILY INJ 04/28/25 10:00 05/03/25 10:06 200 MLS/HR Lorazepam 1 mg Q2HPRN PRN IV 04/27/25 17:00 Ipratropium [place] 0.5 mg Q6HPRN PRN NEB 04/27/25 17:15 Cancel Albuterol 2.5 mg Q6HPRN PRN NEB 04/27/25 17:15 Cancel Sucralfate 1 gm QID@0600,1130,1700,2200 PO 04/28/25 17:00 05/03/25 10:06 1 GM Pantoprazole Sodium 40 mg BID IV 04/29/25 22:00 05/03/25 10:06 40 MG Iron Sucrose 110 ml @ 110 mls/hr DAILY@1200 IV 04/30/25 12:00 05/04/25 12:59 05/03/25 11:10 110 MLS/HR Albuterol 2.5 mg Q6HPRN PRN NEB 05/02/25 12:00 Ipratropium [place] 0.5 mg Q6HR PRN NEB 05/02/25 12:15 Examination General Appearance: Cooperative. Well developed. In no distress Pulmonary/Respiratory: Equal bilateral air entry Cardiovascular/Chest: Regular rate and rhythm. Abdominal Exam: Normal bowel sounds. Distended abdomen, soft, dullness to percussion. Nontender Neuro/Mental Status: A&O x4. Coherent. Thoughts/Psych: Normal thought pattern. Appropriate mood and affect. Good judgement and insight Skin Exam: Normal inspection. Normal color. Warm. Dry laboratory and microbiology Laboratory Tests 05/03/25 05:24 Test 05/03/25 05:24 Range/Units Serum Glucose 94 74-106 mg/dL Microbiology Date/Time Source Procedure Growth Status 04/27/25 10:59 Blood Blood Culture - Final NO GROWTH AFTER 5 DAYS OF INCUBATION. 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 CT abdomen pelvis: Limited evaluation without contrast.Cirrhotic morphology liver with hepatosplenomegaly.Cholelithiasis. Mild pericholecystic, gallbladder wall edema/ stranding . Recommend HIDA scan to exclude cholecystitis.Bowel wall thickening of the large bowel as described most pronounced within the cecum and ascending colon which can be secondary to portal hypertension, colitis, inflammatory disease.Right renal cyst with peripheral calcifications measuring 4.3 cm. Recommend MRI abdomen with and without contrast to further characterize to exclude any type of nodular component/complexity Mesenteric edema. Discontinued IV Protonix drip and IV octreotide drip IV Protonix 40 mg b.i.d. Carafate 1 g q.i.d. Counseled patient on the importance of alcohol cessation Discontinue aspirin, NSAIDs, smoking Patient was instructed to follow up with GI in the outpatient clinic for management of possible cirrhosis and screening colonoscopy, patient demonstrated understanding. Thank you so much for the opportunity to consult on your patient. GI team will follow the patient. In case of any questions or concerns please feel free to reach out. Plan discussed with Dr. Díaz Plan discussed with: Patient, Other (RN) Dietary Evaluation Review Recommendations by RD: Dietary education by RD Comments: 1) Continue micronutrient supplementation 2) Advance to cardiac diet when medically feasible 3) Refer to outpatient RD for weight management 4) Follow-up with gastroenterology and cardiology 5) Follow-up with social media senior associate r/t ETOH abuse 6) Continue to monitor I&O, labs, and skin integrity Expected Outcomes/Goals: 1) appetite and labs to improve 2) diet to advance 3) gradual wt loss 4) f/u in 3-5 days CC Plasma Assessment Blood Product Administration S: [id number] MICHELLE KRISHNAMURTHY RESIDENT May 03, 2025 14:32
--- NOTE | 2025-05-03 15:31 | DVHPN2 ---
Subjective Continues to complain of abdominal pain Reviewed: Care Plan, H&P, Labs, Medications, Previous Orders, Radiology, Other (Consultations) Changes from previous H/P or p: No Changes Objective Vitals Vital Signs Date Time Temp Pulse Resp B/P (MAP) Pulse Ox O2 Delivery O2 Flow Rate FiO2 05/03/25 12:47 99.3 77 18 140/82 (101) 95 99.3 05/03/25 08:15 Room Air* 0 21 Intake/Output Intake and Output 05/03/25 07:00 Intake Total 2346.2 ml Balance 2346.2 ml Intake Oral 2186 ml IV Total 160.2 ml # Voids 5 # Bowel Movements 2 General Appearance: Alert, Oriented X3, Cooperative, No acute distress, Other (Morbidly obese) HEENT: Atraumatic Neck: Other (Right IJ TLC with no signs of bleeding/infection) Lungs: Clear to auscultation, Normal air movement Cardiovascular: Regular rate, Normal S1, Normal S2, No murmurs Abdomen: Normal bowel sounds, Soft, No tenderness, Other (Ascites) Extremities: No edema Neuro: Normal speech, Cranial nerves 3-12 NL Psych/Mental Status: Mental status NL, Mood NL Medications Current Medications Medications Dose Ordered Sig/Lizandro Route Start Time Stop Time Status Last Admin Dose Admin Ondansetron HCl 4 mg Q4HP PRN IV 04/27/25 16:45 Acetaminophen 650 mg Q6HP PRN PO 04/27/25 16:45 Nitroglycerin 0.4 mg Q5MINP PRN SL 04/27/25 16:45 Morphine Sulfate 2 mg Q30M PRN IV 04/27/25 16:45 Thiamine HCl 100 mg DAILY IV 04/28/25 10:00 05/03/25 10:06 100 MG Folic Acid 1 mg/ Dextrose 50.2 ml @ 200 mls/hr DAILY INJ 04/28/25 10:00 05/03/25 10:06 200 MLS/HR Lorazepam 1 mg Q2HPRN PRN IV 04/27/25 17:00 Ipratropium [place] 0.5 mg Q6HPRN PRN NEB 04/27/25 17:15 Cancel Albuterol 2.5 mg Q6HPRN PRN NEB 04/27/25 17:15 Cancel Sucralfate 1 gm QID@0600,1130,1700,2200 PO 04/28/25 17:00 05/03/25 10:06 1 GM Pantoprazole Sodium 40 mg BID IV 04/29/25 22:00 05/03/25 10:06 40 MG Iron Sucrose 110 ml @ 110 mls/hr DAILY@1200 IV 04/30/25 12:00 05/04/25 12:59 05/03/25 11:10 110 MLS/HR Albuterol 2.5 mg Q6HPRN PRN NEB 05/02/25 12:00 Ipratropium [place] 0.5 mg Q6HR PRN NEB 05/02/25 12:15 Laboratory Results Laboratory Tests 05/03/25 05:24 Chemistry Test 05/03/25 05:24 Calcium Level 8.1 mg/dL (8.7-10.4) L Urinalysis Test 04/27/25 10:30 Urine Color Light-yellow (Yellow) Urine Clarity Clear (Clear) Urine pH 5.0 (5.0-9.0) Urine Specific [place] 1.015 (1.001-1.035) Urine Protein Negative (Negative) Urine Ketones 1+ (Negative) H Urine Blood Negative /uL (Negative) Urine Nitrite Negative (Negative) Urine Bilirubin Negative (Negative) Urine Urobilinogen Normal mg/dL (Negative) Urine Leukocyte Esterase Negative /uL (Negative) Urine RBC 1 /hpf (0 - 3) Urine Microscopic WBC /HPF (0-3) Urine Squamous Epithelial Cells Few /hpf (<5) Urine Bacteria None seen /hpf (None Seen) Urine Glucose Normal mg/dL (Normal) Microbiology Microbiology Date/Time Source Procedure Growth Status 04/27/25 10:59 Blood Blood Culture - Final NO GROWTH AFTER 5 DAYS OF INCUBATION. Complete Labs and/or images reviewed: Labs reviewed by me, Image(s) reviewed by me Assessment/Plan Assessment/Plan Covering: Acute blood loss anemia due to GI bleed with positive stool occult blood test Alcoholic liver cirrhosis with ascites, thrombocytopenia and coagulopathy GI bleed status post EGD on April 28, 2025 that showed no active bleeding Distal esophageal varices without bleeding Distal esophageal varices 2+, without bleeding Erosive esophagitis Possible Cheatham's esophagus Portal hypertension gastropathy MAYDA, most likely vasomotor nephropathy in the setting of suspected sepsis and GI bleed Hypernatremia then hyponatremia in the setting of severe alcohol use disorder and MAYDA Lactic acidosis due to severe alcohol use disorder and suspected sepsis Suspected sepsis with leukocytosis and lactic acidosis due to abdominal infection; finished IV antibiotics Right renal cyst with peripheral calcifications measuring 4.3 cm; to be investigated as outpatient Grade 1 diastolic dysfunction Suspected COPD; initially was in exacerbation Asymptomatic cholelithiasis Severe alcohol use disorder Morbid obesity Reviewed the available lab work and imaging studies Reviewed blood cultures that showed no growth Continue IV iron as per GI Continue folic acid and thiamine Continue monitoring for alcohol withdrawal Counseled the patient for 22 minutes for alcohol use cessation Counseled the patient on the importance of adopting lifestyle with diet and exercise in order to lose weight Reviewed echocardiogram results Continue pain management as indicated Continue IV pantoprazole Was on octreotide GI is following Avoid nephrotoxic agent Replace electrolytes as indicated Received IV steroids for exacerbation of suspected COPD Continue nebulizers Continue monitoring Goals of care discussed with the patient for 20 minutes; full code Late Entry. This medical document was created using an electronic medical record system with computerized dictation system. Although this document has been carefully reviewed, there might still be some phonetic and typographical errors. These areas are purely typographical due to imperfections of the software programs, and do not reflect any compromise in the patient's medical care. Plan discussed with: Patient, Other (Nurse) Date of Service: May 03, 2025 Billing Provider: DESTINI AGUILA MD Common Visit Codes: [id number] INP/OBS CARE(HIGH) Secondary Visit Codes: [id number] CHNG SMOKING >10MIN (Counseled the patient for 22 minutes for alcohol use cessation), [id number] CARE PLAN 30 MINUTES (20 minutes) DESTINI AGUILA MD May 03, 2025 15:31
[2025-05-03] MEDS: ACETAMINOPHEN 325 MG TAB PO PRN (21:32)
[2025-05-04] VITALS (11 sets, daily range): BP systolic 133–145; BP diastolic 82–93; PULSE 72–91; RESP 18–19; TEMP 98–98.9; O2SAT 94–99
[2025-05-04 07:20] LABS: Hematocrit 22.7 % (41.0-53.0); Hemoglobin 7.5 g/dL (13.5-17.5); Mean Corpuscular Hemoglobin 28.1 pg (28.0-32.0); Mean Corpuscular Volume 85.0 fL (80.0-100.0); Nucleated Red Blood Cells % 0.6 %
[2025-05-04 07:25] LABS: Anion Gap 10 (5-15); Carbon Dioxide 23 mmol/L (20-31); Chloride 106 mmol/L (98-107); Glucose 97 mg/dL (74-106); Magnesium 1.8 mg/dL (1.6-2.6); Potassium 3.7 mmol/L (3.5-5.1); Sodium 139 mmol/L (136-145); Total Protein 6.0 g/dL (5.7-8.2)
[2025-05-04 07:26] LABS: Alanine Aminotransferase 104 U/L (7-40); Albumin 2.8 g/dL (3.2-4.8); Alkaline Phosphatase 223 U/L (46-116); BUN/Creatinine Ratio 6.3 (10.0-20.0); Bilirubin, Total 1.7 mg/dL (0.2-1.0); Blood Urea Nitrogen < 5 mg/dL (9-23); Calcium 8.1 mg/dL (8.7-10.4); Lipase 87 U/L (12-53)
--- NOTE | 2025-05-04 10:47 | DVHPN2 ---
Progress Note Date Seen: May 04, 2025 Resident Creating Document: MICHELLE KRISHNAMURTHY RESIDENT Medical Necessity Reason Pt with a Central, PICC or Fol: No Subjective Review of Systems Patient seen and examined at bedside Last BM today, tay Denies any nausea vomiting Tolerating diet Objective vital signs Vital Sign Date Time Temp Pulse Resp B/P (MAP) Pulse Ox O2 Delivery O2 Flow Rate FiO2 05/04/25 09:00 98.0 72 18 133/82 (99) 98 98.0 05/04/25 08:00 Room Air* 0 21 Total Intake and Output 05/03/25 05/03/25 05/04/25 15:00 23:00 07:00 Intake Total 600 ml 500 ml Balance 600 ml 500 ml medications Current Medications Medications Dose Ordered Sig/Lizandro Route Start Time Stop Time Status Last Admin Dose Admin Ondansetron HCl 4 mg Q4HP PRN IV 04/27/25 16:45 Acetaminophen 650 mg Q6HP PRN PO 04/27/25 16:45 05/04/25 05:33 650 MG Nitroglycerin 0.4 mg Q5MINP PRN SL 04/27/25 16:45 Morphine Sulfate 2 mg Q30M PRN IV 04/27/25 16:45 Thiamine HCl 100 mg DAILY IV 04/28/25 10:00 05/04/25 08:50 100 MG Folic Acid 1 mg/ Dextrose 50.2 ml @ 200 mls/hr DAILY INJ 04/28/25 10:00 05/04/25 08:51 200 MLS/HR Lorazepam 1 mg Q2HPRN PRN IV 04/27/25 17:00 Ipratropium [place] 0.5 mg Q6HPRN PRN NEB 04/27/25 17:15 Cancel Albuterol 2.5 mg Q6HPRN PRN NEB 04/27/25 17:15 Cancel Sucralfate 1 gm QID@0600,1130,1700,2200 PO 04/28/25 17:00 05/04/25 08:50 1 GM Pantoprazole Sodium 40 mg BID IV 04/29/25 22:00 05/04/25 08:50 40 MG Iron Sucrose 110 ml @ 110 mls/hr DAILY@1200 IV 04/30/25 12:00 05/04/25 12:59 05/03/25 11:10 110 MLS/HR Albuterol 2.5 mg Q6HPRN PRN NEB 05/02/25 12:00 Ipratropium [place] 0.5 mg Q6HR PRN NEB 05/02/25 12:15 Examination General Appearance: Cooperative. Well developed. In no distress Pulmonary/Respiratory: Equal bilateral air entry Cardiovascular/Chest: Regular rate and rhythm. Abdominal Exam: Normal bowel sounds. Distended abdomen, soft, dullness to percussion. Nontender Neuro/Mental Status: A&O x4. Coherent. Thoughts/Psych: Normal thought pattern. Appropriate mood and affect. Good judgement and insight Skin Exam: Normal inspection. Normal color. Warm. Dry laboratory and microbiology Laboratory Tests 05/04/25 06:31 Test 05/04/25 06:31 Range/Units Serum Glucose 97 74-106 mg/dL Microbiology Date/Time Source Procedure Growth Status 04/27/25 10:59 Blood Blood Culture - Final NO GROWTH AFTER 5 DAYS OF INCUBATION. 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 CT abdomen pelvis: Limited evaluation without contrast.Cirrhotic morphology liver with hepatosplenomegaly.Cholelithiasis. Mild pericholecystic, gallbladder wall edema/ stranding . Recommend HIDA scan to exclude cholecystitis.Bowel wall thickening of the large bowel as described most pronounced within the cecum and ascending colon which can be secondary to portal hypertension, colitis, inflammatory disease.Right renal cyst with peripheral calcifications measuring 4.3 cm. Recommend MRI abdomen with and without contrast to further characterize to exclude any type of nodular component/complexity Mesenteric edema. Discontinued IV Protonix drip and IV octreotide drip IV Protonix 40 mg b.i.d. Carafate 1 g q.i.d. Counseled patient on the importance of alcohol cessation Discontinue aspirin, NSAIDs, smoking Patient was instructed to follow up with GI in the outpatient clinic for management of possible cirrhosis and screening colonoscopy, patient demonstrated understanding. Thank you so much for the opportunity to consult on your patient. GI team will follow the patient. In case of any questions or concerns please feel free to reach out. Plan discussed with Dr. Díaz Plan discussed with: Patient, Other (RN) Dietary Evaluation Review Recommendations by RD: Dietary education by RD Comments: 1) Continue micronutrient supplementation 2) Advance to cardiac diet when medically feasible 3) Refer to outpatient RD for weight management 4) Follow-up with gastroenterology and cardiology 5) Follow-up with social work faculty member r/t ETOH abuse 6) Continue to monitor I&O, labs, and skin integrity Expected Outcomes/Goals: 1) appetite and labs to improve 2) diet to advance 3) gradual wt loss 4) f/u in 3-5 days CC Plasma Assessment Blood Product Administration S: [id number] MICHELLE KRISHNAMURTHY RESIDENT May 04, 2025 10:47
--- NOTE | 2025-05-04 16:29 | DVHPN2 ---
Subjective Patient is alert awake oriented x3. Comfortable in bed. On his phone. No complaints. Anxious to go home. Reviewed: Care Plan, H&P, Labs, Medications, Previous Orders, Radiology, Other (Consultations) Changes from previous H/P or p: No Changes Objective Vitals Vital Signs Date Time Temp Pulse Resp B/P (MAP) Pulse Ox O2 Delivery O2 Flow Rate FiO2 05/04/25 13:03 98.2 75 18 145/93 (110) 98 98.2 05/04/25 08:00 Room Air* 0 21 Intake/Output Intake and Output 05/04/25 07:00 Intake Total 1100 ml Balance 1100 ml Intake Oral 1100 ml # Voids 5 # Bowel Movements 2 General Appearance: Alert, Oriented X3, Cooperative, No acute distress, Other (Morbidly obese) HEENT: Atraumatic Neck: Other (Right IJ TLC with no signs of bleeding/infection) Lungs: Clear to auscultation, Normal air movement Cardiovascular: Regular rate, Normal S1, Normal S2, No murmurs Abdomen: Normal bowel sounds, Soft, No tenderness, Other (Ascites) Extremities: No edema Neuro: Normal speech, Cranial nerves 3-12 NL Psych/Mental Status: Mental status NL, Mood NL Medications Current Medications Medications Dose Ordered Sig/Lizandro Route Start Time Stop Time Status Last Admin Dose Admin Ondansetron HCl 4 mg Q4HP PRN IV 04/27/25 16:45 Acetaminophen 650 mg Q6HP PRN PO 04/27/25 16:45 05/04/25 05:33 650 MG Nitroglycerin 0.4 mg Q5MINP PRN SL 04/27/25 16:45 Morphine Sulfate 2 mg Q30M PRN IV 04/27/25 16:45 Lorazepam 1 mg Q2HPRN PRN IV 04/27/25 17:00 Ipratropium [place] 0.5 mg Q6HPRN PRN NEB 04/27/25 17:15 Cancel Albuterol 2.5 mg Q6HPRN PRN NEB 04/27/25 17:15 Cancel Sucralfate 1 gm QID@0600,1130,1700,2200 PO 04/28/25 17:00 05/04/25 08:50 1 GM Albuterol 2.5 mg Q6HPRN PRN NEB 05/02/25 12:00 Ipratropium [place] 0.5 mg Q6HR PRN NEB 05/02/25 12:15 Laboratory Results Laboratory Tests 05/04/25 06:31 Chemistry Test 05/04/25 06:31 Albumin 2.8 g/dL (3.2-4.8) L Calcium Level 8.1 mg/dL (8.7-10.4) L Magnesium Level 1.8 mg/dL (1.6-2.6) Total Protein 6.0 g/dL (5.7-8.2) Lipid panel Test 05/04/25 06:31 Lipase 87 U/L (12-53) H LFT Test 05/04/25 06:31 Alanine Aminotransferase (ALT) 104 U/L (7-40) H Alkaline Phosphatase 223 U/L (46-116) H Aspartate Amino Transferase (AST) 53 U/L (13-40) H Total Bilirubin 1.7 mg/dL (0.2-1.0) H Urinalysis Test 04/27/25 10:30 Urine Color Light-yellow (Yellow) Urine Clarity Clear (Clear) Urine pH 5.0 (5.0-9.0) Urine Specific [place] 1.015 (1.001-1.035) Urine Protein Negative (Negative) Urine Ketones 1+ (Negative) H Urine Blood Negative /uL (Negative) Urine Nitrite Negative (Negative) Urine Bilirubin Negative (Negative) Urine Urobilinogen Normal mg/dL (Negative) Urine Leukocyte Esterase Negative /uL (Negative) Urine RBC 1 /hpf (0 - 3) Urine Microscopic WBC /HPF (0-3) Urine Squamous Epithelial Cells Few /hpf (<5) Urine Bacteria None seen /hpf (None Seen) Urine Glucose Normal mg/dL (Normal) Microbiology Microbiology Date/Time Source Procedure Growth Status 04/27/25 10:59 Blood Blood Culture - Final NO GROWTH AFTER 5 DAYS OF INCUBATION. Complete Assessment/Plan Assessment/Plan Acute blood loss anemia due to GI bleed with positive stool occult blood test Alcoholic liver cirrhosis with ascites, thrombocytopenia and coagulopathy GI bleed status post EGD on April 28, 2025 that showed no active bleeding Distal esophageal varices without bleeding Distal esophageal varices 2+, without bleeding Erosive esophagitis Possible Cheatham's esophagus Portal hypertension gastropathy MAYDA, most likely vasomotor nephropathy in the setting of suspected sepsis and GI bleed Hypernatremia then hyponatremia in the setting of severe alcohol use disorder and MAYDA Lactic acidosis due to severe alcohol use disorder and suspected sepsis Suspected sepsis with leukocytosis and lactic acidosis due to abdominal infection; finished IV antibiotics Right renal cyst with peripheral calcifications measuring 4.3 cm; to be investigated as outpatient Grade 1 diastolic dysfunction Suspected COPD; initially was in exacerbation Asymptomatic cholelithiasis Severe alcohol use disorder Morbid obesity Reviewed the available lab work and imaging studies Reviewed blood cultures that showed no growth Continue IV iron as per GI Continue folic acid and thiamine Continue monitoring for alcohol withdrawal Counseled the patient for 22 minutes for alcohol use cessation Counseled the patient on the importance of adopting lifestyle with diet and exercise in order to lose weight Reviewed echocardiogram results Continue pain management as indicated Continue IV pantoprazole Was on octreotide GI is following Avoid nephrotoxic agent Replace electrolytes as indicated Received IV steroids for exacerbation of suspected COPD Continue nebulizers Continue monitoring Patient is clinically stable. Hemoglobin is stable. His stool coronary his brown today. No dark stool noted. I will advance his diet to soft diet overnight. Monitor him overnight and if he remains stable consider discharge home tomorrow. Meantime I will transition his IV meds to oral medications. Discussed with the patient regarding care plan Plan discussed with: Patient My Orders Orders - KATIUSKA SEN MD Procedure Category Date Status Time Soft Diet DIET 05/04/25 Transmitted Dinner Pantoprazole Tablet PHA 05/04/25 Transmitted (Protonix Tablet) 17:00 Sucralfate Tab PHA 05/04/25 Transmitted (Carafate Tab) 17:00 Date of Service: May 04, 2025 Billing Provider: KATIUSKA SEN MD Common Visit Codes: [id number] INP/OBS CARE(MOD) KATIUSKA SEN MD May 04, 2025 16:29
[2025-05-04] MEDS ORDERED: SUCRALFATE 1 GM TAB PO SCH (17:00)
[2025-05-04] MEDS: PANTOPRAZOLE 40 MG TAB PO SCH (18:16)
[2025-05-04] MEDS: SUCRALFATE 1 GM TAB PO SCH (21:33)
[2025-05-05] VITALS (9 sets, daily range): BP systolic 114–143; BP diastolic 78–91; PULSE 64–92; RESP 18–20; TEMP 98–99.4; O2SAT 95–99
[2025-05-05 07:29] LABS: Hemoglobin 7.6 g/dL (13.5-17.5)
[2025-05-05 07:32] LABS: Hematocrit 23.3 % (41.0-53.0); Mean Corpuscular Hemoglobin 27.9 pg (28.0-32.0); Mean Corpuscular Volume 86.1 fL (80.0-100.0); Nucleated Red Blood Cells % 0.8 %
[2025-05-05 07:33] LABS: Chloride 107 mmol/L (98-107); Sodium 140 mmol/L (136-145)
[2025-05-05 07:34] LABS: Anion Gap 9 (5-15); Carbon Dioxide 24 mmol/L (20-31)
[2025-05-05 07:39] LABS: Glucose 103 mg/dL (74-106)
[2025-05-05 07:47] LABS: BUN/Creatinine Ratio 5.4 (10.0-20.0); Blood Urea Nitrogen < 5 mg/dL (9-23)
[2025-05-05 07:53] LABS: Calcium 8.2 mg/dL (8.7-10.4); Potassium 3.5 mmol/L (3.5-5.1)
[2025-05-05 09:45] LABS: Total Protein 6.1 g/dL (5.7-8.2)
[2025-05-05 09:49] LABS: Alanine Aminotransferase 91.0 U/L (7-40); Albumin 2.8 g/dL (3.2-4.8); Alkaline Phosphatase 231.0 U/L (46-116); Bilirubin, Direct 0.8 mg/dL (<0.3); Bilirubin, Total 1.3 mg/dL (0.2-1.0)
[2025-05-05] MEDS ORDERED: IRON100T PO (14:42)
[2025-05-05] MEDS ORDERED: SUCR1SUS5 PO (14:42)
[2025-05-05] MEDS ORDERED: PANT40T PO (14:42)
--- NOTE | 2025-05-05 14:43 | DVHDS2 ---
Discharge Summary Date of Admission Apr 28, 2025 at 14:05 Date of Discharge: May 05, 2025 Labs/Diagnostic Data: Laboratory Results Test 05/05/25 06:40 05/04/25 06:31 05/01/25 07:00 04/29/25 16:48 White Blood Count 6.0 10^3/uL (4.4-10.8) Red Blood Count 2.71 10^6/uL (4.5-5.90) Hemoglobin 7.6 g/dL (13.5-17.5) Hematocrit 23.3 % (41.0-53.0) Mean Corpuscular Volume 86.1 fL (80.0-100.0) Mean Corpuscular Hemoglobin 27.9 pg (28.0-32.0) Mean Corpuscular Hemoglobin Concent 32.5 g/dL (32.0-36.0) Red Cell Distribution Width 21.7 % (11.8-14.3) Platelet Count 123 10^3/uL (140-450) Mean Platelet Volume 8.3 fL (6.9-10.8) Neutrophils (%) (Auto) 68.5 % (37.0-80.0) Lymphocytes (%) (Auto) 12.0 % (10.0-50.0) Monocytes (%) (Auto) 13.4 % (0.0-12.0) Eosinophils (%) (Auto) 5.2 % (0.0-7.0) Basophils (%) (Auto) 0.9 % (0.0-2.0) Neutrophils # (Auto) 4.1 10 ^3/uL (1.6-8.6) Lymphocytes # (Auto) 0.7 10 ^3/uL (0.4-5.4) Monocytes # (Auto) 0.8 10 ^3/uL (0-1.3) Eosinophils # (Auto) 0.3 10 ^3/uL (0-0.8) Basophils # (Auto) 0.1 10 ^3/uL (0-0.2) Nucleated Red Blood Cells 0.8 % Sodium Level 140 mmol/L (136-145) Potassium Level 3.5 mmol/L (3.5-5.1) Chloride Level 107 mmol/L (98-107) Carbon Dioxide Level 24 mmol/L (20-31) Anion Gap 9 (5-15) Blood Urea Nitrogen < 5 mg/dL (9-23) Creatinine 0.93 mg/dL (0.700-1.30) Glomerular Filtration Rate Calc 97 mL/min (>90) BUN/Creatinine Ratio 5.4 (10.0-20.0) Serum Glucose 103 mg/dL (74-106) Calcium Level 8.2 mg/dL (8.7-10.4) Total Bilirubin 1.3 mg/dL (0.2-1.0) Direct Bilirubin 0.8 mg/dL (<0.3) Aspartate Amino Transferase (AST) 44 U/L (13-40) Alanine Aminotransferase (ALT) 91 U/L (7-40) Alkaline Phosphatase 231 U/L (46-116) Total Protein 6.1 g/dL (5.7-8.2) Albumin 2.8 g/dL (3.2-4.8) Magnesium Level 1.8 mg/dL (1.6-2.6) Ammonia 26 umol/L (11-32) Lipase 87 U/L (12-53) Differential Total Cells Counted 100.0 (100) Neutrophils % (Manual) 80 (37.0-80.0) Band Neutrophils % (Manual) 0 Lymphocytes % (Manual) 11 (10.0-50.0) Monocytes % (Manual) 9 (0-12) Eosinophils % (Manual) 0 (0-7) Basophils % (Manual) 0 (0.0-2.0) Metamyelocytes % (manual) 0 Myelocytes % (Manual) 0 Promyelocytes % (Manual) 0 Blast Cells % (Manual) 0 Reactive Lymphocytes 0 Platelet Estimate Decreased Anisocytosis (manual) Slight Lactic Acid Level 1.6 mmol/L (0.4-2.0) Test 04/29/25 12:18 04/27/25 20:32 04/27/25 18:34 04/27/25 15:57 Prothrombin Time 14.2 sec (9.3-11.8) Prothrombin Time INR 1.38 (0.9-1.15) Activated Partial Thromboplast Time 24.8 SEC (24.5-34.5) Plasma/Serum Blood Alcohol < 3.0 mg/dL (<10) Blood Gas Specimen Type Arterial Blood Gas Sample Site Right radial Blood Gas Patient Temperature 37.0 Arterial Blood Date Drawn [id number] Arterial Blood pH 7.420 (7.350-7.450) Arterial Blood Partial Pressure CO2 25.1 mmHg (35.0-48.0) Arterial Blood Partial Pressure O2 74.8 mmHg (83.0-108.0) Arterial Blood HCO3 15.9 mmol/L (21.0-28.0) Arterial Blood Oxygen Saturation 93.3 % (94.0-98.0) Arterial Blood Base Excess -7.9 mmol/L (-2.0-3.0) Arterial Blood Oxyhemoglobin 90.9 % (94.0-98.0) Arterial Blood Carboxyhemoglobin 1.5 % (0.5-1.5) Arterial Blood Methemoglobin 1.1 % (0.0-1.5) Santhosh Test Yes Blood Gas Total Hemoglobin 5.60 g/dL (13.5-17.5) Blood Gas Liter Flow 2.00 Blood Gas Modality Nasal cannula FiO2 % 28.0 Blood Gas Critical Value Read Back yes Blood Gas Notified Whom md jeanine yap Blood Gas Notified Time [id number] Blood Gas Notified By size mixer michell cisneros Stool Occult Blood Positive (Negative) Stool Occult Blood Sample #3 (Negative) Test 04/27/25 13:34 04/27/25 11:42 04/27/25 10:46 04/27/25 10:45 Troponin I High Sensitivity 37 ng/L (</=54) Venous Blood pH 7.275 (7.320-7.430) Venous Blood pCO2 at Patient Temp 17.7 mmHg (38.0-54.0) Venous Blood pO2 at Patient Temp < 36.5 mmHg (23.0-48.0) Venous Blood HCO3 8.0 mmol/L (22.0-29.0) Venous Blood Base Excess -16.1 mmol/L (-2.0-3.0) Hypochromasia (manual) Moderate B-Type Natriuretic Peptide 51.08 pg/mL (0-100) Influenza Type A Antigen Negative (Negative) Influenza Type B Antigen Negative (Negative) SARS-CoV-2 Antigen (Rapid) Negative (NEGATIVE) Test 04/27/25 10:30 Urine Color Light-yellow (Yellow) Urine Clarity Clear (Clear) Urine pH 5.0 (5.0-9.0) Urine Specific [place] 1.015 (1.001-1.035) Urine Protein Negative (Negative) Urine Ketones 1+ (Negative) Urine Blood Negative /uL (Negative) Urine Nitrite Negative (Negative) Urine Bilirubin Negative (Negative) Urine Urobilinogen Normal mg/dL (Negative) Urine Leukocyte Esterase Negative /uL (Negative) Urine RBC 1 /hpf (0 - 3) Urine Microscopic WBC /HPF (0-3) Urine Squamous Epithelial Cells Few /hpf (<5) Urine Bacteria None seen /hpf (None Seen) Urine Glucose Normal mg/dL (Normal) Urine Opiates Screen Neg (NEGATIVE) Urine Fentanyl Screen Neg (NEGATIVE) Urine Barbiturates Screen Neg (NEGATIVE) Urine Phencyclidine Screen Neg (NEGATIVE) Urine Amphetamines Screen Neg (NEGATIVE) Urine Benzodiazepines Screen Neg (NEGATIVE) Urine Cocaine Screen Neg (NEGATIVE) Urine Cannabinoids Screen Neg (NEGATIVE) Other Laboratory Tests 05/05/25 06:40 Final Diagnosis/Problems List Acute blood loss anemia due to GI bleed with positive stool occult blood test Alcoholic liver cirrhosis with ascites, thrombocytopenia and coagulopathy GI bleed status post EGD on April 28, 2025 that showed no active bleeding Distal esophageal varices without bleeding Distal esophageal varices 2+, without bleeding Erosive esophagitis Possible Cheatham's esophagus Portal hypertension gastropathy MAYDA, most likely vasomotor nephropathy in the setting of suspected sepsis and GI bleed Hypernatremia then hyponatremia in the setting of severe alcohol use disorder and MAYDA Lactic acidosis due to severe alcohol use disorder and suspected sepsis Suspected sepsis with leukocytosis and lactic acidosis due to abdominal infection; finished IV antibiotics Right renal cyst with peripheral calcifications measuring 4.3 cm; to be investigated as outpatient Grade 1 diastolic dysfunction Suspected COPD; initially was in exacerbation Asymptomatic cholelithiasis Severe alcohol use disorder Morbid obesity Discharge Disposition: Home Discharge Instruct/Medications Diet: Consistent carbohydrate, Cardiac 2g Na,low cholest Activity: No Restrictions, As Tolerated Follow Up/Referral: PCP 2 weeks to repeat blood test for anemia. Follow with GI 3-4 weeks for stomach problems Medications: as prescribed Scheduled Atorvastatin Calcium (Atorvastatin Calcium), 1 TAB PO DAILY, (Reported) Hydroxyzine Hcl (Hydroxyzine Hcl), 1 TAB PO HS, (Reported) Iron-Vitamin C (Iron 100/C), 1 TAB PO MWF Pantoprazole Sodium Sesquihydr (Pantoprazole Sodium), 40 MG PO BID Sucralfate (Carafate), 10 ML PO QID Discharge Statement: "Patient was advised to return to the ER or call 911 if any headaches, dizziness, shortness of breath, chest pain, abdominal pain, bleeding, fevers, or worsening of medical condition. Patient was counseled about treatment plan, medications, possible side effects, patientverbalized understanding. All questions were answered to the best of my ability. This discharge took greater then 30 minutes in planning, reviewing documentation, counseling the patient, and discussing with other team members." ASSESSMENT ASSESSMENT Assessment Acute blood loss anemia due to GI bleed with positive stool occult blood test Alcoholic liver cirrhosis with ascites, thrombocytopenia and coagulopathy GI bleed status post EGD on April 28, 2025 that showed no active bleeding Distal esophageal varices without bleeding Distal esophageal varices 2+, without bleeding Erosive esophagitis Possible Cheatham's esophagus Portal hypertension gastropathy MAYDA, most likely vasomotor nephropathy in the setting of suspected sepsis and GI bleed Hypernatremia then hyponatremia in the setting of severe alcohol use disorder and MAYDA Lactic acidosis due to severe alcohol use disorder and suspected sepsis Suspected sepsis with leukocytosis and lactic acidosis due to abdominal infection; finished IV antibiotics Right renal cyst with peripheral calcifications measuring 4.3 cm; to be investigated as outpatient Grade 1 diastolic dysfunction Suspected COPD; initially was in exacerbation Asymptomatic cholelithiasis Severe alcohol use disorder Morbid obesity KATIUSKA SEN MD May 05, 2025 14:43
--- NOTE | 2025-05-05 16:43 | DVHPN2 ---
Progress Note Date Seen: May 05, 2025 Resident Creating Document: MICHELLE KRISHNAMURTHY RESIDENT Medical Necessity Reason Pt with a Central, PICC or Fol: No Subjective Review of Systems Patient seen and examined at bedside Notes significant improvement in symptoms Stable H&H Objective vital signs Vital Sign Date Time Temp Pulse Resp B/P (MAP) Pulse Ox O2 Delivery O2 Flow Rate FiO2 05/05/25 16:14 99.4 80 20 143/91 (108) 98 99.4 05/05/25 12:55 2.0 05/05/25 08:20 Room Air* 21 Total Intake and Output 05/04/25 05/04/25 05/05/25 15:00 23:00 07:00 Intake Total 700.2 ml 1150 ml 1100 ml Balance 700.2 ml 1150 ml 1100 ml medications Current Medications Medications Dose Ordered Sig/Lizandro Route Start Time Stop Time Status Last Admin Dose Admin Ondansetron HCl 4 mg Q4HP PRN IV 04/27/25 16:45 Acetaminophen 650 mg Q6HP PRN PO 04/27/25 16:45 05/04/25 05:33 650 MG Nitroglycerin 0.4 mg Q5MINP PRN SL 04/27/25 16:45 Morphine Sulfate 2 mg Q30M PRN IV 04/27/25 16:45 Lorazepam 1 mg Q2HPRN PRN IV 04/27/25 17:00 Ipratropium [place] 0.5 mg Q6HPRN PRN NEB 04/27/25 17:15 Cancel Albuterol 2.5 mg Q6HPRN PRN NEB 04/27/25 17:15 Cancel Albuterol 2.5 mg Q6HPRN PRN NEB 05/02/25 12:00 Ipratropium [place] 0.5 mg Q6HR PRN NEB 05/02/25 12:15 Pantoprazole Sodium 40 mg BID@0600,1700 PO 05/04/25 17:00 05/05/25 05:59 40 MG Sucralfate 1 gm QIDACHS PO 05/04/25 22:00 05/05/25 11:13 1 GM Examination General Appearance: Cooperative. Well developed. In no distress Pulmonary/Respiratory: Equal bilateral air entry Cardiovascular/Chest: Regular rate and rhythm. Abdominal Exam: Normal bowel sounds. Distended abdomen, soft, dullness to percussion. Nontender Neuro/Mental Status: A&O x4. Coherent. Thoughts/Psych: Normal thought pattern. Appropriate mood and affect. Good judgement and insight Skin Exam: Normal inspection. Normal color. Warm. Dry laboratory and microbiology Laboratory Tests 05/05/25 06:40 Test 05/05/25 06:40 Range/Units Serum Glucose 103 74-106 mg/dL Microbiology Date/Time Source Procedure Growth Status 04/27/25 10:59 Blood Blood Culture - Final NO GROWTH AFTER 5 DAYS OF INCUBATION. 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 CT abdomen pelvis: Limited evaluation without contrast.Cirrhotic morphology liver with hepatosplenomegaly.Cholelithiasis. Mild pericholecystic, gallbladder wall edema/ stranding . Recommend HIDA scan to exclude cholecystitis.Bowel wall thickening of the large bowel as described most pronounced within the cecum and ascending colon which can be secondary to portal hypertension, colitis, inflammatory disease.Right renal cyst with peripheral calcifications measuring 4.3 cm. Recommend MRI abdomen with and without contrast to further characterize to exclude any type of nodular component/complexity Mesenteric edema. Discontinued IV Protonix drip and IV octreotide drip IV Protonix 40 mg b.i.d. Carafate 1 g q.i.d. Counseled patient on the importance of alcohol cessation Discontinue aspirin, NSAIDs, smoking Patient was instructed to follow up with GI in the outpatient clinic for management of possible cirrhosis and screening colonoscopy, patient demonstrated understanding. Thank you so much for the opportunity to consult on your patient. GI team will follow the patient. In case of any questions or concerns please feel free to reach out. Plan discussed with Dr. Díaz Plan discussed with: Patient, Spouse, Other (RN) My Orders My Orders Orders - KRISHNAMURTHY,EMAN RESIDENT Procedure Category Date Status Time D/C Triple Lumen ORDERS 05/05/25 Transmitted 15:47 D/C Tlc DARRYL 05/05/25 In Process 15:47 Dietary Evaluation Review Recommendations by RD: Dietary education by RD Comments: 1) Continue micronutrient supplementation 2) Advance to cardiac diet when medically feasible 3) Refer to outpatient RD for weight management 4) Follow-up with gastroenterology and cardiology 5) Follow-up with drug abuse social worker r/t ETOH abuse 6) Continue to monitor I&O, labs, and skin integrity Expected Outcomes/Goals: 1) appetite and labs to improve 2) diet to advance 3) gradual wt loss 4) f/u in 3-5 days CC Plasma Assessment Blood Product Administration S: [id number] MICHELLE KRISHNAMURTHY RESIDENT May 05, 2025 16:43
== END 2025-05-05 18:30 | disposition home or self-care (01) | DRG 720 ==
LOC: ER 10:22 → EDBD 10:22 → UNDOADMIN 16:41 → OVERFLOW 16:41 → TELE-WESTW 04-28 16:15
PROVIDERS: ADMIT Hospitalist; ATTEND Hospitalist
PROC: 30233N1 Transfusion of Nonautologous Red Blood Cells into Peripheral Vein, Percutaneous Approach (ICD-10-PCS; principal; 2025-04-27)
PROC: 02HV33Z Insertion of Infusion Device into Superior Vena Cava, Percutaneous Approach (ICD-10-PCS; 2025-04-27)
PROC: B548ZZA Ultrasonography of Superior Vena Cava, Guidance (ICD-10-PCS; 2025-04-27)
PROC: 0DB98ZX Excision of Duodenum, Via Natural or Artificial Opening Endoscopic, Diagnostic (ICD-10-PCS; 2025-04-28)
PROC: 0DB68ZX Excision of Stomach, Via Natural or Artificial Opening Endoscopic, Diagnostic (ICD-10-PCS; 2025-04-28)
DX: A41.9 Sepsis, unspecified organism (principal); N17.0 Acute kidney failure with tubular necrosis; J96.01 Acute respiratory failure with hypoxia; K22.11 Ulcer of esophagus with bleeding; E87.20 Acidosis, unspecified; K29.71 Gastritis, unspecified, with bleeding; E87.5 Hyperkalemia; K76.6 Portal hypertension; K44.9 Diaphragmatic hernia without obstruction or gangrene; Z20.822 Contact with and (suspected) exposure to COVID-19; E78.5 Hyperlipidemia, unspecified; K31.89 Other diseases of stomach and duodenum; K70.31 Alcoholic cirrhosis of liver with ascites; D69.6 Thrombocytopenia, unspecified; D68.9 Coagulation defect, unspecified; K80.20 Calculus of gallbladder without cholecystitis without obstruction; N28.1 Cyst of kidney, acquired; E66.01 Morbid (severe) obesity due to excess calories; K70.10 Alcoholic hepatitis without ascites; D62 Acute posthemorrhagic anemia; E87.0 Hyperosmolality and hypernatremia; F10.20 Alcohol dependence, uncomplicated; I85.10 Secondary esophageal varices without bleeding; J44.1 Chronic obstructive pulmonary disease with (acute) exacerbation; Z83.3 Family history of diabetes mellitus; Z68.38 Body mass index [BMI] 38.0-38.9, adult
CPT/HCPCS: 36415; 36600; 71045; 74176; 76700; 80048; 80053; 80076; 80307; 80320; 81001; 82140; 82270; 82805; 83605; 83690; 83735; 83880; 84484; 85007; 85014; 85018; 85025; 85027; 85610; 85730; 86850; 86900; 86901; 86920; 87040; 87426; 87804; 93005; 93306; 96365; 96366; 96368; 96375; 99291; G0378; J1756; J2003; J2250; J2405; J2470; J2704; J7060